=== PATIENT | male | born 1970 | race Caucasian/White ===

== ENCOUNTER 2017-11-15 20:39 | Inpatient (IN) | payer BC ==
[~2017-11-15] VITALS: Ht 182.9 cm; Wt 113.6 kg
[2017-11-15] MEDS ORDERED: normal saline 1000ML IV soln IVB ONE (21:50)
[2017-11-15] MEDS ORDERED: famotidine/PF 10 mg/ml inj IV ONE (21:50)
[2017-11-15 22:35] LABS: BASOPHILS % (AUTO) 0 % (0-1); EOSINOPHILS % (AUTO) 0.4 % (0-6); HEMATOCRIT 46.9 % (42.0-52.0); HEMOGLOBIN 15.5 g/dl (14.0-17.9); LYMPHOCYTES # (AUTO) 0.1 X10'3 (1.1-4.8); LYMPHOCYTES % (AUTO) 1.8 % (21-51); MEAN CORPUSCULAR HGB CONC 33.1 % (33.0-36.5); MEAN CORPUSCULAR VOLUME 84.5 FL (78-98); MEAN PLATELET VOLUME 7.9 FL (7.4-10.4); MONOCYTES % (AUTO) 0.2 % (2-12); NEUTROPHILS # (AUTO) 5.1 X10'3 (1.8-7.7); NEUTROPHILS % (AUTO) 97.6 % (42-75); PLATELET COUNT 169 X10'3 (140-440); RED BLOOD COUNT 5.55 X10'6 (4.70-6.10); RED CELL DISTRIBUTION WIDTH 12.9 % (11.5-14.5); WHITE BLOOD COUNT 5.3 X10'3 (4.5-11.0)
[2017-11-15 22:44] LABS: INR 1.2 INR; PROTHROMBIN TIME 12.7 SECONDS (9.0-12.0)
[2017-11-15 22:50] LABS: ALANINE AMINOTRANSFERASE 78 U/L (12-78); ALBUMIN 3.4 G/DL (3.4-5.0); ALBUMIN/GLOBULIN RATIO 0.9 (1.1-1.5); ALKALINE PHOSPHATASE 203 IU/L (46-116); ANION GAP 14 (8-16); ASPARTATE AMINO TRANSFERASE 60 U/L (10-37); BILIRUBIN,TOTAL 1.5 MG/DL (0.1-1.0); BLOOD UREA NITROGEN 16 MG/DL (7-18); BUN/CREATININE RATIO 11.4 (5.4-32.0); CALCIUM 9.3 MG/DL (8.5-10.1); CHLORIDE 96 MMOL/L (99-107); GLUCOSE 305 MG/DL (70-104); LIPASE 210 U/L (73-393); POTASSIUM 3.3 MMOL/L (3.5-5.1); SODIUM 132 MMOL/L (135-145); TOTAL CARBON DIOXIDE 22.5 MMOL/L (24-32); TOTAL PROTEIN 7.4 G/DL (6.4-8.2); eGFR 54 ML/MIN
[2017-11-15 23:00] LABS: TOTAL CELLS COUNTED 100
[2017-11-15 23:01] LABS: PLATELET ESTIMATE NORMAL; TOXIC VACUOLATION 2+
[2017-11-15] MEDS ORDERED: CefTRIAXone 2gm/NS 100ml IVPB 100 ML IV ONE (23:45)
[2017-11-15] MEDS ORDERED: levoFLOXACIN-Levaquin 750MG/D5 150 ML IV ONE (23:45)
[2017-11-16] MEDS ORDERED: normal saline 1000ML IV soln IV ONE
[2017-11-16 02:19] LABS: CLARITY,URINE Clear (Clear); COLOR,URINE Yellow (Yellow); GLUCOSE, URINE >=1000 mg/dl (Neg); KETONES,URINE Negative (Neg); LEUKOCYTE ESTERASE ,URINE Negative (Neg); NITRITES, URINE Negative (Neg); OCCULT BLOOD,URINE Negative (Neg); PROTEIN,URINE Negative (Neg)
[2017-11-16 02:25] LABS: UA COLLECTION TYPE CLN CATCH MIDSTREAM
[2017-11-16 02:28] LABS: URINE AMPHETAMINE SCREEN NEGATIVE (Neg); URINE BARBITUATE SCREEN NEGATIVE (Neg); URINE BENZODIAZEPINES SCREEN NEGATIVE (Neg); URINE CANNABINOID SCREEN NEGATIVE (Neg); URINE COCAINE SCREEN NEGATIVE (Neg); URINE METHADONE SCREEN NEGATIVE (Neg); URINE OPIATE SCREEN POSITIVE (Neg); URINE PHENCYCLIDINE SCREEN NEGATIVE (Neg)
[2017-11-16 02:35] LABS: RBC,URINE NONE SEEN /HPF (0-2); WBC,URINE 0-4 /HPF (0-4)
[2017-11-16 02:36] LABS: BACTERIA,URINE 1+ /HPF (Neg); SQUAMOUS EPITHELIAL CELL,UR NONE SEEN /LPF (FEW)
[2017-11-16] MEDS ORDERED: LEVEMIR (02:41)
[2017-11-16] MEDS ORDERED: [UNRECOGNIZED DRUG - OTHER] (02:41)
[2017-11-16] MEDS ORDERED: SIMVASTATIN 20 MG TABLET (02:41)
[2017-11-16] MEDS ORDERED: SIMVASTATIN 20 MG (02:41)
[2017-11-16] MEDS ORDERED: LISINOPRIL-HCTZ 20-25 MG TAB (02:41)
[2017-11-16] MEDS ORDERED: potassium Cl 20 mEq SR tablet PO ONE (03:46)
[2017-11-16] MEDS ORDERED: potassium Cl 20 mEq SR tablet PO PRN ×2 (04:05)
[2017-11-16] MEDS ORDERED: potassium Cl 40MEQ/NS 500ml 500 ML IV PRN ×2 (04:05)
[2017-11-16] MEDS ORDERED: magnesium hydroxide 30ml (MOM) UD suspension PO PRN (04:05)
[2017-11-16] MEDS ORDERED: mag hydrox/Alum hydrox/simeth 30ml oral suspension PO PRN (04:05)
[2017-11-16] MEDS ORDERED: glucagon, human recombinant 1mg kit SUBCUT PRN (04:05)
[2017-11-16] MEDS ORDERED: ondansetron/PF 4mg/2ml inj IV PRN (04:05)
[2017-11-16] MEDS ORDERED: acetaminophen 325mg tablet PO PRN (04:05)
[2017-11-16] MEDS ORDERED: dextrose ORAL solution 15 GM/59 ML bottle PO PRN ×2 (04:05)
[2017-11-16] MEDS ORDERED: MESSAGE TO PHARMACY PO ONE (04:05)
[2017-11-16] MEDS ORDERED: dextrose 50%-water 50ml dispensing syringe IV PRN ×2 (04:05)
[2017-11-16] MEDS: metroNIDAZOLE-Flagyl 500mg/NS 100 ML IV SCH ×3 (05:43→23:24)
[2017-11-16] MEDS: normal saline 1000ml 1,000 ML IV SCH ×2 (05:43→11:16)
[2017-11-16] MEDS: acetaminophen 325mg tablet PO PRN ×2 (10:40→16:53)
[2017-11-16 14:01] VITALS: BP 113/74
[2017-11-16 20:00] VITALS: BP 116/70
[2017-11-16] MEDS: insulin Lispro (HumaLOG) vial - multi-dose SQ SCH (20:01)
[2017-11-16] MEDS: levoFLOXACIN-Levaquin 500mg/D5 100 ML IV SCH (22:08)
[2017-11-16] MEDS: Insulin Detemir pen SQ SCH (22:15)
[2017-11-17] VITALS: BP 120/68
[2017-11-17] MEDS: normal saline 1000ml 1,000 ML IV SCH ×3 (02:59→14:47)
[2017-11-17] MEDS: acetaminophen 325mg tablet PO PRN (03:05)
[2017-11-17 06:01] LABS: BASOPHILS % (AUTO) 0 % (0-1); EOSINOPHILS # (AUTO) 0.1 X10'3 (0-0.9); EOSINOPHILS % (AUTO) 1.2 % (0-6); HEMATOCRIT 39.7 % (42.0-52.0); HEMOGLOBIN 13.5 g/dl (14.0-17.9); LYMPHOCYTES # (AUTO) 0.6 X10'3 (1.1-4.8); LYMPHOCYTES % (AUTO) 6.7 % (21-51); MEAN CORPUSCULAR HGB CONC 33.9 % (33.0-36.5); MEAN CORPUSCULAR VOLUME 85.4 FL (78-98); MEAN PLATELET VOLUME 8.6 FL (7.4-10.4); MONOCYTES # (AUTO) 0.4 X10'3 (0-0.9); NEUTROPHILS # (AUTO) 8.4 X10'3 (1.8-7.7); NEUTROPHILS % (AUTO) 88.1 % (42-75); PLATELET COUNT 144 X10'3 (140-440); RED BLOOD COUNT 4.65 X10'6 (4.70-6.10); RED CELL DISTRIBUTION WIDTH 12.6 % (11.5-14.5); WHITE BLOOD COUNT 9.6 X10'3 (4.5-11.0)
[2017-11-17 07:05] LABS: ALBUMIN 2.9 G/DL (3.4-5.0); ANION GAP 11 (8-16); BLOOD UREA NITROGEN 11 MG/DL (7-18); BUN/CREATININE RATIO 10.9 (5.4-32.0); CALCIUM 8.3 MG/DL (8.5-10.1); CHLORIDE 106 MMOL/L (99-107); CREATININE 1.01 MG/DL (0.60-1.10); GLUCOSE 209 MG/DL (70-104); MAGNESIUM 1.8 MG/DL (1.5-2.4); POTASSIUM 3.7 MMOL/L (3.5-5.1); SODIUM 139 MMOL/L (135-145); TOTAL CARBON DIOXIDE 21.8 MMOL/L (24-32); eGFR 79 ML/MIN
[2017-11-17 07:23] VITALS: BP 136/90
[2017-11-17] MEDS: insulin Lispro (HumaLOG) vial - multi-dose SQ SCH ×2 (09:06→14:57)
[2017-11-17] MEDS: LACTOBACILLUS RHAMNOSUS GG 15 billion unit sprinkle caps PO SCH (09:07)
[2017-11-17] MEDS: metroNIDAZOLE-Flagyl 500mg/NS 100 ML IV SCH ×3 (09:07→23:31)
[2017-11-17 11:52] VITALS: BP 136/85
[2017-11-17] MEDS ORDERED: ketorolac trometh. 30mg/ml inj. IM PRN (15:10)
[2017-11-17 18:00] VITALS: BP 126/81
[2017-11-17] MEDS ORDERED: PEG 3350/Na sulf,bicarb,Cl/KCl oral sol 4 liter bottle PO ONE (18:00)
[2017-11-17] MEDS: ketorolac trometh. 30mg/ml inj. IV PRN (19:48)
[2017-11-17] MEDS: levoFLOXACIN-Levaquin 500mg/D5 100 ML IV SCH (21:16)
[2017-11-17] MEDS: Insulin Detemir pen SQ SCH (21:25)
[2017-11-18] VITALS (8 sets, daily range): BP systolic 110–135; BP diastolic 63–96
[2017-11-18] MEDS: normal saline 1000ml 1,000 ML IV SCH ×2 (03:57→15:43)
[2017-11-18 05:22] LABS: BASOPHILS % (AUTO) 0.2 % (0-1); EOSINOPHILS # (AUTO) 0.1 X10'3 (0-0.9); EOSINOPHILS % (AUTO) 1.6 % (0-6); HEMATOCRIT 37.6 % (42.0-52.0); HEMOGLOBIN 12.9 g/dl (14.0-17.9); LYMPHOCYTES # (AUTO) 1.2 X10'3 (1.1-4.8); LYMPHOCYTES % (AUTO) 14.4 % (21-51); MEAN CORPUSCULAR HEMOGLOBIN 28.9 PG (27.0-31.0); MEAN CORPUSCULAR HGB CONC 34.3 % (33.0-36.5); MEAN CORPUSCULAR VOLUME 84.3 FL (78-98); MEAN PLATELET VOLUME 8.3 FL (7.4-10.4); MONOCYTES # (AUTO) 0.8 X10'3 (0-0.9); MONOCYTES % (AUTO) 10.3 % (2-12); NEUTROPHILS % (AUTO) 73.5 % (42-75); PLATELET COUNT 143 X10'3 (140-440); RED BLOOD COUNT 4.46 X10'6 (4.70-6.10); RED CELL DISTRIBUTION WIDTH 12.7 % (11.5-14.5); WHITE BLOOD COUNT 8.1 X10'3 (4.5-11.0)
[2017-11-18 06:12] LABS: ALBUMIN 2.6 G/DL (3.4-5.0); ANION GAP 9 (8-16); BLOOD UREA NITROGEN 11 MG/DL (7-18); BUN/CREATININE RATIO 11.6 (5.4-32.0); CALCIUM 8.2 MG/DL (8.5-10.1); CHLORIDE 104 MMOL/L (99-107); CREATININE 0.95 MG/DL (0.60-1.10); GLUCOSE 199 MG/DL (70-104); MAGNESIUM 1.9 MG/DL (1.5-2.4); POTASSIUM 3.4 MMOL/L (3.5-5.1); SODIUM 139 MMOL/L (135-145); TOTAL CARBON DIOXIDE 25.6 MMOL/L (24-32); eGFR 85 ML/MIN
[2017-11-18] MEDS: LACTOBACILLUS RHAMNOSUS GG 15 billion unit sprinkle caps PO SCH (08:27)
[2017-11-18] MEDS: metroNIDAZOLE-Flagyl 500mg/NS 100 ML IV SCH ×2 (08:28→15:42)
[2017-11-18] MEDS: ketorolac trometh. 30mg/ml inj. IV PRN (08:28)
[2017-11-18] MEDS ORDERED: normal saline 1000ml 1,000 ML IV SCH (11:10)
[2017-11-18] MEDS ORDERED: fentaNYL/PF 50MCG/1 ML 2ML syringe IV PRN (11:10)
[2017-11-18] MEDS ORDERED: MIDAZolam 1mg/ml 10ml vial IV PRN (11:10)
[2017-11-18] MEDS ORDERED: simethicone 40mg/0.6ml oral drops 30ml MC ONE (11:10)
[2017-11-18] MEDS ORDERED: MIDAZolam 1mg/ml 10ml vial ONE (11:57)
[2017-11-18] MEDS ORDERED: fentaNYL/PF 50MCG/1 ML 2ML syringe ONE (11:57)
[2017-11-18] MEDS ORDERED: CIPR-230 PO (15:31)
[2017-11-18] MEDS ORDERED: POTA20TA10 PO (15:32)
== END 2017-11-18 17:00 | disposition home or self-care (01) | DRG 871 ==
LOC: ER 20:40 → ED HOLD 11-16 04:05 → EDBEDREQ 11-16 13:13 → SUR 3N 11-16 13:37
PROVIDERS: ADMIT Internal Medicine; ATTEND Internal Medicine
PROC: 0DBN8ZX Excision of Sigmoid Colon, Via Natural or Artificial Opening Endoscopic, Diagnostic (ICD-10-PCS; principal; 2017-11-18)
DX: A41.9 Sepsis, unspecified organism (principal); J18.9 Pneumonia, unspecified organism; E87.2 Acidosis; K74.60 Unspecified cirrhosis of liver; E11.65 Type 2 diabetes mellitus with hyperglycemia; E66.01 Morbid (severe) obesity due to excess calories; Q43.8 Other specified congenital malformations of intestine; E78.00 Pure hypercholesterolemia, unspecified; E78.5 Hyperlipidemia, unspecified; E87.6 Hypokalemia; I10 Essential (primary) hypertension; K52.9 Noninfective gastroenteritis and colitis, unspecified; K57.30 Diverticulosis of large intestine without perforation or abscess without bleeding; K64.8 Other hemorrhoids; K76.0 Fatty (change of) liver, not elsewhere classified; K80.20 Calculus of gallbladder without cholecystitis without obstruction; R91.1 Solitary pulmonary nodule; D12.5 Benign neoplasm of sigmoid colon; Z72.0 Tobacco use; Z68.34 Body mass index [BMI] 34.0-34.9, adult
CPT/HCPCS: 36415; 45380; 71046; 74176; 76700; 80048; 80053; 80305; 81001; 82948; 83036; 83605; 83690; 83735; 84145; 84484; 85025; 85610; 85651; 86140; 87040; 87070; 87077; 87186; 87502; 87503; 93005; 96361; 96365; 96366; 96368; 96375; 99285; A4620; G0500; J0696; J1885; J1956; J2250; J2270; J3010; J3490; J7030

== ENCOUNTER 2017-11-24 07:03 | Inpatient (IN) | payer BC ==
[~2017-11-24] VITALS: Ht 182.9 cm; Wt 107.6 kg
[~2017-11-24 07:03] MED LIST: CIPR-230 PO; LEVEMIR; LISINOPRIL-HCTZ 20-25 MG TAB; POTA20TA10 PO; SIMVASTATIN 20 MG TABLET; [UNRECOGNIZED DRUG - OTHER]
[2017-11-24] MEDS ORDERED: folic acid 1mg tablet PO ONE (07:45)
[2017-11-24] MEDS ORDERED: thiamine 100mg tablet PO ONE (07:45)
[2017-11-24] MEDS ORDERED: chlordiazePOXIDE 25mg capsule PO ONE (07:45)
[2017-11-24] MEDS ORDERED: normal saline 1000ML IV soln IVB ONE (07:45)
[2017-11-24 07:57] LABS: HEMATOCRIT 48.6 % (42.0-52.0); HEMOGLOBIN 16.4 g/dl (14.0-17.9); MEAN CORPUSCULAR HEMOGLOBIN 28.4 PG (27.0-31.0); MEAN CORPUSCULAR HGB CONC 33.8 % (33.0-36.5); MEAN CORPUSCULAR VOLUME 83.9 FL (78-98); MEAN PLATELET VOLUME 8.4 FL (7.4-10.4); PLATELET COUNT 345 X10'3 (140-440); RED BLOOD COUNT 5.79 X10'6 (4.70-6.10); RED CELL DISTRIBUTION WIDTH 12.6 % (11.5-14.5)
[2017-11-24 08:03] LABS: WHITE BLOOD COUNT 26.8 X10'3 (4.5-11.0)
[2017-11-24] MEDS ORDERED: magnesium 2GM in 50ml NS 50 ML IV STA (08:06)
[2017-11-24 08:12] LABS: ALANINE AMINOTRANSFERASE 43 U/L (12-78); ALBUMIN 3.7 G/DL (3.4-5.0); ALBUMIN/GLOBULIN RATIO 0.8 (1.1-1.5); ALKALINE PHOSPHATASE 118 IU/L (46-116); ANION GAP 15 (8-16); ASPARTATE AMINO TRANSFERASE 21 U/L (10-37); BILIRUBIN,TOTAL 1.6 MG/DL (0.1-1.0); BLOOD UREA NITROGEN 22 MG/DL (7-18); BUN/CREATININE RATIO 12.2 (5.4-32.0); CHLORIDE 94 MMOL/L (99-107); ETHANOL < 0.010 GM/DL (0.0-0.010); GLUCOSE 267 MG/DL (70-104); MAGNESIUM 1.4 MG/DL (1.5-2.4); POTASSIUM 4.1 MMOL/L (3.5-5.1); SODIUM 128 MMOL/L (135-145); TOTAL CARBON DIOXIDE 19.5 MMOL/L (24-32); TOTAL PROTEIN 8.1 G/DL (6.4-8.2); eGFR 41 ML/MIN
[2017-11-24 08:13] LABS: CLARITY,URINE CLEAR (Clear); COLOR,URINE YELLOW (Yellow); GLUCOSE, URINE 100 mg/dl (Neg); KETONES,URINE NEGATIVE (Neg); LEUKOCYTE ESTERASE ,URINE NEGATIVE (Neg); NITRITES, URINE NEGATIVE (Neg); OCCULT BLOOD,URINE NEGATIVE (Neg); PROTEIN,URINE NEGATIVE (Neg); UROBILINOGEN,URINE 0.2 E.U/dL (0.2-1.0)
[2017-11-24 08:24] LABS: URINE AMPHETAMINE SCREEN NEGATIVE (Neg); URINE BARBITUATE SCREEN NEGATIVE (Neg); URINE BENZODIAZEPINES SCREEN NEGATIVE (Neg); URINE CANNABINOID SCREEN NEGATIVE (Neg); URINE COCAINE SCREEN NEGATIVE (Neg); URINE METHADONE SCREEN NEGATIVE (Neg); URINE OPIATE SCREEN NEGATIVE (Neg); URINE PHENCYCLIDINE SCREEN NEGATIVE (Neg)
[2017-11-24 08:24] LABS: INR 1.1 INR; PARTIAL THROMBOPLASTIN TIME 28 SECONDS (22-32); PROTHROMBIN TIME 10.9 SECONDS (9.0-12.0)
[2017-11-24 08:33] LABS: UA COLLECTION TYPE NON-SPECIFIED
[2017-11-24] MEDS ORDERED: piperacillin/tazo 3.375gm/50ml 50 ML IV ONE (08:35)
[2017-11-24] MEDS ORDERED: normal saline 1000ML IV soln IV ONE (08:35)
[2017-11-24] MEDS ORDERED: LINA5TAB4 PO (08:48)
[2017-11-24 08:50] LABS: MICROCYTOSIS 1+; PLATELET ESTIMATE NORMAL; TOTAL CELLS COUNTED 100; TOXIC GRANULATION 1+
[2017-11-24] MEDS ORDERED: CLIN-79 PO (08:51)
[2017-11-24] MEDS ORDERED: vancomycin/NS 1 GM ADD-VANTAGE 250 ML IV ONE (09:00)
[2017-11-24] MEDS ORDERED: potassium Cl 40MEQ/NS 500ml 500 ML IV PRN ×2 (10:00)
[2017-11-24] MEDS ORDERED: ondansetron/PF 4mg/2ml inj IV PRN (10:00)
[2017-11-24] MEDS ORDERED: mag hydrox/Alum hydrox/simeth 30ml oral suspension PO PRN (10:00)
[2017-11-24] MEDS ORDERED: magnesium Cl slow-release 64mg tablet PO PRN (10:00)
[2017-11-24] MEDS ORDERED: magnesium hydroxide 30ml (MOM) UD suspension PO PRN (10:00)
[2017-11-24] MEDS ORDERED: HYDROcodone/acetaminophen 5mg/325mg tablet PO PRN (10:00)
[2017-11-24] MEDS ORDERED: HYDROcodone/acetaminophen 10/325mg tab PO PRN (10:00)
[2017-11-24] MEDS ORDERED: magnesium 4gm in 100ml NS 100 ML IV PRN (10:00)
[2017-11-24] MEDS ORDERED: potassium Cl 20 mEq SR tablet PO PRN ×2 (10:00)
[2017-11-24] MEDS ORDERED: magnesium 2GM in 50ml NS 50 ML IV PRN (10:00)
[2017-11-24] MEDS ORDERED: glucagon, human recombinant 1mg kit SUBCUT PRN (10:05)
[2017-11-24] MEDS ORDERED: MESSAGE TO PHARMACY PO ONE (10:05)
[2017-11-24] MEDS ORDERED: dextrose 50%-water 50ml dispensing syringe IV PRN ×2 (10:05)
[2017-11-24] MEDS ORDERED: dextrose ORAL solution 15 GM/59 ML bottle PO PRN ×2 (10:05)
[2017-11-24] MEDS ORDERED: LORazepam 1 MG tablet PO PRN (10:05)
[2017-11-24] MEDS: levoFLOXACIN-Levaquin 500mg/D5 100 ML IV SCH (10:43)
[2017-11-24 11:47] VITALS: BP 106/69
[2017-11-24] MEDS: folic acid inj. 2 MG, thiamine inj. 100 MG, MVI, adult No.4 with vit. K 10 ML in dextro... IV SCH ×4 (12:59)
[2017-11-24] MEDS: potassium Cl 20mEq in NS 1,000 ML IV SCH ×2 (12:59→17:36)
[2017-11-24] MEDS: insulin Lispro (HumaLOG) vial - multi-dose SQ SCH (13:40)
[2017-11-24] MEDS ORDERED: pneumococcal 23-VAL P-sac vacc 25 mcg/0.5ml vial IMVAC ONE (16:50)
[2017-11-24] MEDS: metroNIDAZOLE-Flagyl 500mg/NS 100 ML IV SCH (17:23)
[2017-11-24 19:00] VITALS: BP 118/88
[2017-11-24] MEDS: docusate sod 100mg capsule PO SCH (20:00)
[2017-11-24 20:50] VITALS: BP 182/105
[2017-11-24] MEDS: acetaminophen 325mg tablet PO PRN (20:51)
[2017-11-24 21:10] VITALS: BP 91/66
[2017-11-24] MEDS: Insulin Detemir pen SQ SCH (21:28)
[2017-11-24 21:50] VITALS: BP 93/58
[2017-11-25] VITALS (9 sets, daily range): BP systolic 91–155; BP diastolic 55–111
[2017-11-25] MEDS: metroNIDAZOLE-Flagyl 500mg/NS 100 ML IV SCH ×2 (00:03→08:07)
[2017-11-25 05:39] LABS: BASOPHILS % (AUTO) 0 % (0-1); EOSINOPHILS % (AUTO) 0 % (0-6); HEMATOCRIT 39.1 % (42.0-52.0); HEMOGLOBIN 13.2 g/dl (14.0-17.9); LYMPHOCYTES # (AUTO) 0.4 X10'3 (1.1-4.8); LYMPHOCYTES % (AUTO) 1.5 % (21-51); MEAN CORPUSCULAR HEMOGLOBIN 28.5 PG (27.0-31.0); MEAN CORPUSCULAR HGB CONC 33.8 % (33.0-36.5); MEAN CORPUSCULAR VOLUME 84.4 FL (78-98); MEAN PLATELET VOLUME 8.9 FL (7.4-10.4); MONOCYTES % (AUTO) 3.7 % (2-12); NEUTROPHILS # (AUTO) 24.5 X10'3 (1.8-7.7); NEUTROPHILS % (AUTO) 94.8 % (42-75); PLATELET COUNT 255 X10'3 (140-440); RED BLOOD COUNT 4.63 X10'6 (4.70-6.10); RED CELL DISTRIBUTION WIDTH 12.7 % (11.5-14.5)
[2017-11-25 05:55] LABS: ALANINE AMINOTRANSFERASE 38 U/L (12-78); ALBUMIN 2.7 G/DL (3.4-5.0); ALBUMIN/GLOBULIN RATIO 0.7 (1.1-1.5); ALKALINE PHOSPHATASE 117 IU/L (46-116); ANION GAP 10 (8-16); ASPARTATE AMINO TRANSFERASE 23 U/L (10-37); BILIRUBIN,TOTAL 1.2 MG/DL (0.1-1.0); BLOOD UREA NITROGEN 11 MG/DL (7-18); BUN/CREATININE RATIO 9.6 (5.4-32.0); CALCIUM 8.1 MG/DL (8.5-10.1); CHLORIDE 102 MMOL/L (99-107); CREATININE 1.14 MG/DL (0.60-1.10); GLUCOSE 286 MG/DL (70-104); MAGNESIUM 1.8 MG/DL (1.5-2.4); POTASSIUM 4.1 MMOL/L (3.5-5.1); SODIUM 134 MMOL/L (135-145); TOTAL CARBON DIOXIDE 22.1 MMOL/L (24-32); TOTAL PROTEIN 6.4 G/DL (6.4-8.2); eGFR 69 ML/MIN
[2017-11-25 06:10] LABS: WHITE BLOOD COUNT 25.9 X10'3 (4.5-11.0)
[2017-11-25 06:54] LABS: MICROCYTOSIS 1+; PLATELET ESTIMATE NORMAL; TOTAL CELLS COUNTED 100; TOXIC GRANULATION 1+
[2017-11-25] MEDS: enoxaparin 40mg/0.4ml syringe SUBCUT SCH (08:00)
[2017-11-25] MEDS: folic acid inj. 2 MG, thiamine inj. 100 MG, MVI, adult No.4 with vit. K 10 ML in dextro... IV SCH ×4 (08:00)
[2017-11-25] MEDS: K and/or MAG REPLACEMENT MC SCH (08:00)
[2017-11-25] MEDS: docusate sod 100mg capsule PO SCH ×2 (08:00→20:00)
[2017-11-25] MEDS: insulin Lispro (HumaLOG) vial - multi-dose SQ SCH ×2 (09:13→13:26)
[2017-11-25] MEDS: levoFLOXACIN-Levaquin 500mg/D5 100 ML IV SCH (09:14)
[2017-11-25] MEDS: potassium Cl 20mEq in NS 1,000 ML IV SCH ×3 (10:13→17:27)
[2017-11-25] MEDS: thiamine 100mg tablet PO SCH (10:54)
[2017-11-25] MEDS: folic acid 1mg tablet PO SCH (10:54)
[2017-11-25] MEDS ORDERED: LORazepam 2 mg/ml vial IV ONE ×2 (15:05→15:50)
[2017-11-25] MEDS: acetaminophen 325mg tablet PO PRN (15:57)
[2017-11-25] MEDS ORDERED: normal saline 500ml IV soln 500 ML IV ONE ×2 (16:25→17:05)
[2017-11-25] MEDS ORDERED: ketorolac trometh. 30mg/ml inj. IV ONE (17:05)
[2017-11-25] MEDS: piperacillin/tazo 4.5gm/100ml 100 ML IV SCH (18:02)
[2017-11-25] MEDS: diatr meglu/diatrizoate 30ml oral sol.-(3 dose) bottle PO SCH (21:05)
[2017-11-25] MEDS: Insulin Detemir pen SQ SCH (21:12)
[2017-11-26] VITALS: BP 94/57
[2017-11-26] MEDS: potassium Cl 20mEq in NS 1,000 ML IV SCH ×3 (00:20→22:58)
[2017-11-26] MEDS: piperacillin/tazo 4.5gm/100ml 100 ML IV SCH ×4 (00:24→22:58)
[2017-11-26 04:00] VITALS: BP 98/64
[2017-11-26 04:26] LABS: BASOPHILS % (AUTO) 0.1 % (0-1); EOSINOPHILS % (AUTO) 0 % (0-6); HEMATOCRIT 36.5 % (42.0-52.0); HEMOGLOBIN 12.2 g/dl (14.0-17.9); LYMPHOCYTES # (AUTO) 1.1 X10'3 (1.1-4.8); LYMPHOCYTES % (AUTO) 7.3 % (21-51); MEAN CORPUSCULAR HEMOGLOBIN 28.4 PG (27.0-31.0); MEAN CORPUSCULAR HGB CONC 33.3 % (33.0-36.5); MEAN CORPUSCULAR VOLUME 85.2 FL (78-98); MEAN PLATELET VOLUME 8.9 FL (7.4-10.4); MONOCYTES % (AUTO) 7.2 % (2-12); NEUTROPHILS # (AUTO) 12.3 X10'3 (1.8-7.7); NEUTROPHILS % (AUTO) 85.4 % (42-75); PLATELET COUNT 203 X10'3 (140-440); RED BLOOD COUNT 4.29 X10'6 (4.70-6.10); RED CELL DISTRIBUTION WIDTH 12.9 % (11.5-14.5); WHITE BLOOD COUNT 14.4 X10'3 (4.5-11.0)
[2017-11-26 04:51] LABS: ALANINE AMINOTRANSFERASE 47 U/L (12-78); ALBUMIN 2.4 G/DL (3.4-5.0); ALBUMIN/GLOBULIN RATIO 0.7 (1.1-1.5); ALKALINE PHOSPHATASE 134 IU/L (46-116); ANION GAP 7 (8-16); ASPARTATE AMINO TRANSFERASE 31 U/L (10-37); BILIRUBIN,TOTAL 1.2 MG/DL (0.1-1.0); BLOOD UREA NITROGEN 10 MG/DL (7-18); BUN/CREATININE RATIO 8.8 (5.4-32.0); CALCIUM 7.9 MG/DL (8.5-10.1); CHLORIDE 104 MMOL/L (99-107); CREATININE 1.14 MG/DL (0.60-1.10); GLUCOSE 233 MG/DL (70-104); MAGNESIUM 2.1 MG/DL (1.5-2.4); POTASSIUM 4.5 MMOL/L (3.5-5.1); SODIUM 136 MMOL/L (135-145); TOTAL CARBON DIOXIDE 24.6 MMOL/L (24-32); TOTAL PROTEIN 5.9 G/DL (6.4-8.2); eGFR 69 ML/MIN
[2017-11-26] MEDS: diatr meglu/diatrizoate 30ml oral sol.-(3 dose) bottle PO SCH ×2 (07:10→10:13)
[2017-11-26] MEDS: thiamine 100mg tablet PO SCH (07:14)
[2017-11-26] MEDS: enoxaparin 40mg/0.4ml syringe SUBCUT SCH (07:14)
[2017-11-26] MEDS: folic acid 1mg tablet PO SCH (07:14)
[2017-11-26] MEDS: docusate sod 100mg capsule PO SCH ×2 (07:15→19:24)
[2017-11-26] MEDS: K and/or MAG REPLACEMENT MC SCH (07:17)
[2017-11-26 07:25] VITALS: BP 101/68
[2017-11-26] MEDS: insulin Lispro (HumaLOG) vial - multi-dose SQ SCH ×3 (09:06→20:14)
[2017-11-26] MEDS: LORazepam 2 mg/ml vial IV PRN ×3 (09:08→19:22)
[2017-11-26] MEDS ORDERED: iohexol 300mg/ml 100ml inj. ONE (09:51)
[2017-11-26] MEDS: acetaminophen 325mg tablet PO PRN (10:10)
[2017-11-26 11:15] VITALS: BP 124/73
[2017-11-26] MEDS ORDERED: fat emulsion IV 181.82 ML, MVI, adult No.4 with vit. K 4.55 ML, Trace element-5 inj. 0.... IV SCH ×4 (11:48)
[2017-11-26] MEDS ORDERED: Dextrose 10%-water IV solution 1,000 ML IV PRN (11:48)
[2017-11-26] MEDS ORDERED: magnesium 2GM in 50ml NS 50 ML IV PRN (11:50)
[2017-11-26] MEDS ORDERED: magnesium Cl slow-release 64mg tablet PO PRN (11:50)
[2017-11-26] MEDS ORDERED: magnesium 4gm in 100ml NS 100 ML IV PRN (11:50)
[2017-11-26] MEDS: metroNIDAZOLE-Flagyl 500mg/NS 100 ML IV SCH ×2 (12:09→17:19)
[2017-11-26 13:06] LABS: ALANINE AMINOTRANSFERASE 44 U/L (12-78); ALBUMIN 2.6 G/DL (3.4-5.0); ALBUMIN/GLOBULIN RATIO 0.7 (1.1-1.5); ALKALINE PHOSPHATASE 152 IU/L (46-116); ANION GAP 7 (8-16); ASPARTATE AMINO TRANSFERASE 26 U/L (10-37); BILIRUBIN,TOTAL 1.2 MG/DL (0.1-1.0); BLOOD UREA NITROGEN 10 MG/DL (7-18); BUN/CREATININE RATIO 9.7 (5.4-32.0); CALCIUM 8.1 MG/DL (8.5-10.1); CHLORIDE 103 MMOL/L (99-107); CREATININE 1.03 MG/DL (0.60-1.10); GLUCOSE 220 MG/DL (70-104); MAGNESIUM 1.8 MG/DL (1.5-2.4); PHOSPHORUS 1.4 MG/DL (2.3-4.5); POTASSIUM 3.6 MMOL/L (3.5-5.1); PREALBUMIN 13.5 MG/DL (19-36); SODIUM 135 MMOL/L (135-145); TOTAL CARBON DIOXIDE 25.5 MMOL/L (24-32); TOTAL PROTEIN 6.2 G/DL (6.4-8.2); TRIGLYCERIDES 203 MG/DL (20-135); eGFR 77 ML/MIN
[2017-11-26] MEDS ORDERED: potassium phosphate inj 30 MMOL in normal saline 500ml IV soln 490 ML IV ONE (13:25)
[2017-11-26 18:30] VITALS: BP 90/50
[2017-11-26] MEDS: Insulin Detemir pen SQ SCH (20:18)
[2017-11-27] VITALS: BP 114/64
[2017-11-27] MEDS: metroNIDAZOLE-Flagyl 500mg/NS 100 ML IV SCH ×4 (00:32→23:39)
[2017-11-27 05:33] LABS: BASOPHILS % (AUTO) 0.5 % (0-1); EOSINOPHILS # (AUTO) 0.2 X10'3 (0-0.9); HEMATOCRIT 38.6 % (42.0-52.0); HEMOGLOBIN 12.9 g/dl (14.0-17.9); LYMPHOCYTES # (AUTO) 0.9 X10'3 (1.1-4.8); LYMPHOCYTES % (AUTO) 10.3 % (21-51); MEAN CORPUSCULAR HEMOGLOBIN 28.5 PG (27.0-31.0); MEAN CORPUSCULAR HGB CONC 33.3 % (33.0-36.5); MEAN CORPUSCULAR VOLUME 85.6 FL (78-98); MEAN PLATELET VOLUME 9.2 FL (7.4-10.4); MONOCYTES # (AUTO) 0.6 X10'3 (0-0.9); MONOCYTES % (AUTO) 7.6 % (2-12); NEUTROPHILS # (AUTO) 6.7 X10'3 (1.8-7.7); NEUTROPHILS % (AUTO) 79.6 % (42-75); PLATELET COUNT 185 X10'3 (140-440); RED BLOOD COUNT 4.51 X10'6 (4.70-6.10); RED CELL DISTRIBUTION WIDTH 12.7 % (11.5-14.5); WHITE BLOOD COUNT 8.4 X10'3 (4.5-11.0)
[2017-11-27 06:04] LABS: ALBUMIN 2.5 G/DL (3.4-5.0); ANION GAP 9 (8-16); BILIRUBIN,TOTAL 1.2 MG/DL (0.1-1.0); BLOOD UREA NITROGEN 9 MG/DL (7-18); BUN/CREATININE RATIO 8.7 (5.4-32.0); CALCIUM 8.3 MG/DL (8.5-10.1); CHLORIDE 104 MMOL/L (99-107); CREATININE 1.04 MG/DL (0.60-1.10); GLUCOSE 158 MG/DL (70-104); PHOSPHORUS 3.4 MG/DL (2.3-4.5); POTASSIUM 4.5 MMOL/L (3.5-5.1); SODIUM 138 MMOL/L (135-145); TOTAL CARBON DIOXIDE 25.4 MMOL/L (24-32); TOTAL PROTEIN 6.4 G/DL (6.4-8.2); eGFR 77 ML/MIN
[2017-11-27 06:05] LABS: ALANINE AMINOTRANSFERASE 38 U/L (12-78); ALBUMIN/GLOBULIN RATIO 0.6 (1.1-1.5); ALKALINE PHOSPHATASE 112 IU/L (46-116); ASPARTATE AMINO TRANSFERASE 18 U/L (10-37); PREALBUMIN 12.8 MG/DL (19-36); TRIGLYCERIDES 266 MG/DL (20-135)
[2017-11-27] MEDS: docusate sod 100mg capsule PO SCH ×2 (07:46→19:42)
[2017-11-27] MEDS: piperacillin/tazo 4.5gm/100ml 100 ML IV SCH ×2 (07:59→16:38)
[2017-11-27] MEDS ORDERED: thiamine inj. 100 MG in normal saline 100ml IV soln 99 ML IV SCH (08:00)
[2017-11-27] MEDS: enoxaparin 40mg/0.4ml syringe SUBCUT SCH (08:00)
[2017-11-27] MEDS ORDERED: folic acid 1mg/0.2ml inj IV SCH (08:00)
[2017-11-27] MEDS ORDERED: thiamine 100mg/ml 2ml inj. IV SCH (08:00)
[2017-11-27] MEDS: K and/or MAG REPLACEMENT MC SCH (08:00)
[2017-11-27] MEDS: insulin Lispro (HumaLOG) vial - multi-dose SQ SCH ×2 (08:12→15:31)
[2017-11-27 08:22] VITALS: BP 125/80
[2017-11-27] MEDS: potassium Cl 20mEq in NS 1,000 ML IV SCH ×3 (09:09→23:42)
[2017-11-27 11:45] VITALS: BP 118/80
[2017-11-27] MEDS ORDERED: potassium Cl 40MEQ/NS 500ml 500 ML IV PRN ×2 (14:05)
[2017-11-27] MEDS ORDERED: potassium Cl 20 mEq SR tablet PO PRN ×2 (14:05)
[2017-11-27 18:30] VITALS: BP 123/85
[2017-11-27] MEDS: [UNRECOGNIZED DRUG - REMARK] IV SCH ×6 (19:08)
[2017-11-27] MEDS: Insulin Detemir pen SQ SCH (20:49)
[2017-11-28] VITALS: BP 122/70
[2017-11-28] MEDS: piperacillin/tazo 4.5gm/100ml 100 ML IV SCH ×4 (00:44→23:47)
[2017-11-28] MEDS: insulin regular, human vial - multi-dose SQ SCH ×4 (01:59→20:39)
[2017-11-28 05:59] LABS: BASOPHILS # (AUTO) 0.1 X10'3 (0-0.2); BASOPHILS % (AUTO) 0.8 % (0-1); EOSINOPHILS # (AUTO) 0.2 X10'3 (0-0.9); EOSINOPHILS % (AUTO) 2.1 % (0-6); HEMATOCRIT 37.1 % (42.0-52.0); HEMOGLOBIN 12.6 g/dl (14.0-17.9); LYMPHOCYTES % (AUTO) 12.7 % (21-51); MEAN CORPUSCULAR HEMOGLOBIN 28.3 PG (27.0-31.0); MEAN CORPUSCULAR HGB CONC 33.8 % (33.0-36.5); MEAN CORPUSCULAR VOLUME 83.6 FL (78-98); MEAN PLATELET VOLUME 9.1 FL (7.4-10.4); MONOCYTES % (AUTO) 12.6 % (2-12); NEUTROPHILS # (AUTO) 5.7 X10'3 (1.8-7.7); NEUTROPHILS % (AUTO) 71.8 % (42-75); PLATELET COUNT 226 X10'3 (140-440); RED BLOOD COUNT 4.44 X10'6 (4.70-6.10); WHITE BLOOD COUNT 7.9 X10'3 (4.5-11.0)
[2017-11-28 06:18] LABS: ALANINE AMINOTRANSFERASE 29 U/L (12-78); ALBUMIN 2.4 G/DL (3.4-5.0); ALBUMIN/GLOBULIN RATIO 0.6 (1.1-1.5); ALKALINE PHOSPHATASE 116 IU/L (46-116); ANION GAP 5 (8-16); ASPARTATE AMINO TRANSFERASE 16 U/L (10-37); BILIRUBIN,TOTAL 0.8 MG/DL (0.1-1.0); BLOOD UREA NITROGEN 8 MG/DL (7-18); BUN/CREATININE RATIO 9.2 (5.4-32.0); CALCIUM 8.1 MG/DL (8.5-10.1); CHLORIDE 104 MMOL/L (99-107); CREATININE 0.87 MG/DL (0.60-1.10); GLUCOSE 217 MG/DL (70-104); PHOSPHORUS 3.7 MG/DL (2.3-4.5); POTASSIUM 3.7 MMOL/L (3.5-5.1); SODIUM 136 MMOL/L (135-145); TOTAL CARBON DIOXIDE 27.1 MMOL/L (24-32); TOTAL PROTEIN 6.1 G/DL (6.4-8.2); eGFR > 90 ML/MIN
[2017-11-28 07:00] VITALS: BP 109/70
[2017-11-28] MEDS: LACTOBACILLUS RHAMNOSUS GG 15 billion unit sprinkle caps PO SCH (07:30)
[2017-11-28] MEDS: metroNIDAZOLE-Flagyl 500mg/NS 100 ML IV SCH (07:50)
[2017-11-28] MEDS: enoxaparin 40mg/0.4ml syringe SUBCUT SCH (07:51)
[2017-11-28] MEDS: docusate sod 100mg capsule PO SCH ×2 (08:00→18:57)
[2017-11-28] MEDS ORDERED: K and/or MAG REPLACEMENT MC SCH (08:00)
[2017-11-28] MEDS: K and/or MAG REPLACEMENT MC SCH (08:00)
[2017-11-28 11:00] VITALS: BP 118/79
[2017-11-28] MEDS: potassium Cl 20mEq in NS 1,000 ML IV SCH (15:09)
[2017-11-28 18:30] VITALS: BP 120/75
[2017-11-28] MEDS: [UNRECOGNIZED DRUG - REMARK] IV SCH ×6 (18:56)
[2017-11-28] MEDS: Insulin Detemir pen SQ SCH (20:40)
[2017-11-28] MEDS ORDERED: potassium Cl 20mEq in NS 1,000 ML IV ONE (23:31)
[2017-11-29] VITALS: BP 134/75
[2017-11-29] MEDS: insulin regular, human vial - multi-dose SQ SCH ×2 (02:21→09:31)
[2017-11-29 05:35] LABS: BASOPHILS % (AUTO) 0.5 % (0-1); EOSINOPHILS # (AUTO) 0.3 X10'3 (0-0.9); EOSINOPHILS % (AUTO) 3.6 % (0-6); HEMATOCRIT 39.5 % (42.0-52.0); HEMOGLOBIN 13.1 g/dl (14.0-17.9); LYMPHOCYTES # (AUTO) 1.2 X10'3 (1.1-4.8); LYMPHOCYTES % (AUTO) 16.1 % (21-51); MEAN CORPUSCULAR HEMOGLOBIN 28.1 PG (27.0-31.0); MEAN CORPUSCULAR HGB CONC 33.1 % (33.0-36.5); MEAN CORPUSCULAR VOLUME 84.8 FL (78-98); MEAN PLATELET VOLUME 9.2 FL (7.4-10.4); MONOCYTES # (AUTO) 0.8 X10'3 (0-0.9); MONOCYTES % (AUTO) 10.7 % (2-12); NEUTROPHILS % (AUTO) 69.1 % (42-75); PLATELET COUNT 269 X10'3 (140-440); RED BLOOD COUNT 4.65 X10'6 (4.70-6.10); RED CELL DISTRIBUTION WIDTH 12.7 % (11.5-14.5); WHITE BLOOD COUNT 7.2 X10'3 (4.5-11.0)
[2017-11-29 05:57] LABS: ALANINE AMINOTRANSFERASE 26 U/L (12-78); ALBUMIN 2.6 G/DL (3.4-5.0); ALBUMIN/GLOBULIN RATIO 0.7 (1.1-1.5); ALKALINE PHOSPHATASE 107 IU/L (46-116); ANION GAP 6 (8-16); ASPARTATE AMINO TRANSFERASE 13 U/L (10-37); BILIRUBIN,TOTAL 0.6 MG/DL (0.1-1.0); BLOOD UREA NITROGEN 8 MG/DL (7-18); BUN/CREATININE RATIO 8.9 (5.4-32.0); CALCIUM 8.7 MG/DL (8.5-10.1); CHLORIDE 106 MMOL/L (99-107); GLUCOSE 177 MG/DL (70-104); MAGNESIUM 2.1 MG/DL (1.5-2.4); PHOSPHORUS 4.9 MG/DL (2.3-4.5); POTASSIUM 3.7 MMOL/L (3.5-5.1); SODIUM 140 MMOL/L (135-145); TOTAL CARBON DIOXIDE 27.8 MMOL/L (24-32); TOTAL PROTEIN 6.3 G/DL (6.4-8.2); eGFR 90 ML/MIN
[2017-11-29 07:19] VITALS: BP 126/78
[2017-11-29] MEDS: K and/or MAG REPLACEMENT MC SCH (08:00)
[2017-11-29] MEDS: docusate sod 100mg capsule PO SCH ×2 (08:00→20:00)
[2017-11-29] MEDS: piperacillin/tazo 4.5gm/100ml 100 ML IV SCH ×3 (08:50→23:19)
[2017-11-29] MEDS: LACTOBACILLUS RHAMNOSUS GG 15 billion unit sprinkle caps PO SCH (08:50)
[2017-11-29] MEDS: enoxaparin 40mg/0.4ml syringe SUBCUT SCH (08:51)
[2017-11-29 11:00] VITALS: BP 128/73
[2017-11-29] MEDS: potassium Cl 20mEq in NS 1,000 ML IV SCH ×2 (11:09→23:19)
[2017-11-29] MEDS: insulin Lispro (HumaLOG) vial - multi-dose SQ SCH ×2 (15:34→19:06)
[2017-11-29 20:15] VITALS: BP 122/85
[2017-11-29] MEDS: Insulin Detemir pen SQ SCH (21:20)
[2017-11-29] MEDS ORDERED: potassium Cl 20mEq in NS 1,000 ML IV ONE (23:11)
[2017-11-29 23:45] VITALS: BP 123/76
[2017-11-30 05:40] LABS: ALANINE AMINOTRANSFERASE 27 U/L (12-78); ALBUMIN 2.6 G/DL (3.4-5.0); ALBUMIN/GLOBULIN RATIO 0.7 (1.1-1.5); ALKALINE PHOSPHATASE 105 IU/L (46-116); ANION GAP 5 (8-16); ASPARTATE AMINO TRANSFERASE 23 U/L (10-37); BILIRUBIN,TOTAL 0.6 MG/DL (0.1-1.0); BLOOD UREA NITROGEN 10 MG/DL (7-18); CALCIUM 8.7 MG/DL (8.5-10.1); CHLORIDE 106 MMOL/L (99-107); GLUCOSE 155 MG/DL (70-104); MAGNESIUM 1.9 MG/DL (1.5-2.4); PHOSPHORUS 4.7 MG/DL (2.3-4.5); POTASSIUM 4.5 MMOL/L (3.5-5.1); PREALBUMIN 16.2 MG/DL (19-36); SODIUM 139 MMOL/L (135-145); TOTAL PROTEIN 6.5 G/DL (6.4-8.2); TRIGLYCERIDES 257 MG/DL (20-135); eGFR 80 ML/MIN
[2017-11-30] MEDS: LACTOBACILLUS RHAMNOSUS GG 15 billion unit sprinkle caps PO SCH (07:35)
[2017-11-30] MEDS: piperacillin/tazo 4.5gm/100ml 100 ML IV SCH (07:36)
[2017-11-30] MEDS: enoxaparin 40mg/0.4ml syringe SUBCUT SCH (07:36)
[2017-11-30] MEDS: K and/or MAG REPLACEMENT MC SCH (07:43)
[2017-11-30 07:47] VITALS: BP 107/73
[2017-11-30] MEDS: docusate sod 100mg capsule PO SCH (08:00)
[2017-11-30] MEDS: insulin Lispro (HumaLOG) vial - multi-dose SQ SCH (08:49)
[2017-11-30 11:31] VITALS: BP 127/59
[2017-11-30] MEDS ORDERED: METR500T4 PO (11:54)
[2017-11-30] MEDS ORDERED: LEVO500T2 PO (11:54)
== END 2017-11-30 14:16 | disposition home or self-care (01) | DRG 871 ==
LOC: ER 07:04 → ED HOLD 09:58 → EDBEDREQ 10:57 → SUR 3N 11:56
PROVIDERS: ADMIT Internal Medicine; ATTEND Family Medicine
PROC: BW211ZZ Computerized Tomography (CT Scan) of Abdomen and Pelvis using Low Osmolar Contrast (ICD-10-PCS; principal; 2017-11-26)
PROC: 02HV33Z Insertion of Infusion Device into Superior Vena Cava, Percutaneous Approach (ICD-10-PCS; 2017-11-27)
PROC: B548ZZA Ultrasonography of Superior Vena Cava, Guidance (ICD-10-PCS; 2017-11-27)
DX: A40.9 Streptococcal sepsis, unspecified (principal); N17.0 Acute kidney failure with tubular necrosis; E87.1 Hypo-osmolality and hyponatremia; K57.20 Diverticulitis of large intestine with perforation and abscess without bleeding; E83.39 Other disorders of phosphorus metabolism; N17.9 Acute kidney failure, unspecified; E11.9 Type 2 diabetes mellitus without complications; D64.9 Anemia, unspecified; K76.0 Fatty (change of) liver, not elsewhere classified; E78.00 Pure hypercholesterolemia, unspecified; E78.5 Hyperlipidemia, unspecified; A41.4 Sepsis due to anaerobes; A41.89 Other specified sepsis; E86.0 Dehydration; F10.20 Alcohol dependence, uncomplicated; I10 Essential (primary) hypertension; K52.9 Noninfective gastroenteritis and colitis, unspecified; Z86.010 Personal history of colon polyps; Z87.891 Personal history of nicotine dependence; Z79.899 Other long term (current) drug therapy; Z79.01 Long term (current) use of anticoagulants; Z79.82 Long term (current) use of aspirin
CPT/HCPCS: 36415; 36569; 71045; 74176; 74177; 76937; 80053; 80305; 80320; 81003; 82948; 83036; 83605; 83735; 84100; 84134; 84145; 84478; 85025; 85610; 85730; 87040; 87070; 87077; 87186; 93005; 93306; 96365; 96366; 96368; 97116; 97162; 97530; 99291; A6257; A6449; J1650; J1815; J1885; J1956; J2060; J2270; J2543; J3370; J3411; J3475; J3490; J7030; J7060; Q9963; Q9967

== ENCOUNTER 2018-02-07 09:27 | Outpatient (CLI) | payer BC ==
[2018-02-07] VITALS (16 sets, daily range): BP systolic 98–123; BP diastolic 57–76
[~2018-02-07] VITALS: Ht 182.9 cm; Wt 101.5 kg
[~2018-02-07 09:27] MED LIST changes: -CIPR-230 PO; +HYDR-565 PO; +INSU100I25 SQ; -LEVEMIR; +LINA5TAB4 PO; +LISI1TAB13 PO; -LISINOPRIL-HCTZ 20-25 MG TAB; -POTA20TA10 PO; +SIMV20TA5 PO; -SIMVASTATIN 20 MG TABLET; -[UNRECOGNIZED DRUG - OTHER]
[2018-02-07] MEDS ORDERED: normal saline 1000ml 1,000 ML IV SCH (11:01)
[2018-02-07] MEDS ORDERED: fentaNYL/PF 50MCG/1 ML 2ML syringe ONE ×2 (11:05→11:32)
[2018-02-07] MEDS ORDERED: fentaNYL/PF 50MCG/1 ML 2ML syringe IV PRN (11:05)
[2018-02-07] MEDS ORDERED: midazolam 2 mg/2 ml injection IV PRN (11:05)
[2018-02-07] MEDS ORDERED: midazolam 2 mg/2 ml injection ONE ×2 (11:05→11:32)
[2018-02-07] MEDS ORDERED: LIDOcaine 1%/PF (10mg/ml) 5ml vial ONE (11:05)
[2018-02-07] MEDS ORDERED: LIDOcaine 1%/PF (10mg/ml) 5ml vial SQ ONE (11:05)
[2018-02-07] MEDS ORDERED: HYDR-565 PO (13:25)
== END 2018-02-07 13:20 | disposition home or self-care (01) ==
LOC: 64 CT 09:27
PROVIDERS: ATTEND Surgery
DX: L02.211 Cutaneous abscess of abdominal wall (principal); K80.80 Other cholelithiasis without obstruction; E11.9 Type 2 diabetes mellitus without complications; E66.9 Obesity, unspecified; I10 Essential (primary) hypertension; E78.5 Hyperlipidemia, unspecified; F10.21 Alcohol dependence, in remission; Z68.30 Body mass index [BMI] 30.0-30.9, adult; Z79.4 Long term (current) use of insulin; Z90.49 Acquired absence of other specified parts of digestive tract; Z87.891 Personal history of nicotine dependence; Z98.52 Vasectomy status; Z79.2 Long term (current) use of antibiotics; Z79.82 Long term (current) use of aspirin; Z79.899 Other long term (current) drug therapy
CPT/HCPCS: 49406; 74176; 87070; 87077; 87186; 99152; 99153; A6257; J2001; J2250; J3010; J7030

== ENCOUNTER 2018-02-08 12:12 | Inpatient (IN) | payer BC ==
[2018-02-08] VITALS (16 sets, daily range): BP systolic 111–139; BP diastolic 71–96
[~2018-02-08] VITALS: Ht 172.7 cm; Wt 101.0 kg
[~2018-02-08 12:12] MED LIST changes: +cefazolin/dext.iso 2gm/50ml 50 ML IV ONE; +famotidine 20mg tablet PO ONE
[2018-02-08] MEDS: ringers solution, lacted 1,000 ML IV SCH ×2 (12:48→21:52)
[2018-02-08 13:19] LABS: BASOPHILS # (AUTO) 0.1 X10'3 (0-0.2); BASOPHILS % (AUTO) 0.9 % (0-1); EOSINOPHILS # (AUTO) 0.2 X10'3 (0-0.9); EOSINOPHILS % (AUTO) 1.5 % (0-6); LYMPHOCYTES # (AUTO) 1.5 X10'3 (1.1-4.8); LYMPHOCYTES % (AUTO) 13.9 % (21-51); MEAN CORPUSCULAR HEMOGLOBIN 27.6 PG (27.0-31.0); MEAN CORPUSCULAR HGB CONC 33.5 % (33.0-36.5); MEAN CORPUSCULAR VOLUME 82.5 FL (78-98); MEAN PLATELET VOLUME 7.5 FL (7.4-10.4); MONOCYTES # (AUTO) 0.8 X10'3 (0-0.9); MONOCYTES % (AUTO) 7.2 % (2-12); NEUTROPHILS # (AUTO) 8.1 X10'3 (1.8-7.7); NEUTROPHILS % (AUTO) 76.5 % (42-75); PRE OP HEMATOCRIT 38.1 % (42.0-52.0); PRE OP HEMOGLOBIN 12.7 g/dL (14.0-17.9); PRE OP PLATELET COUNT 762 X10'3 (140-440); RED BLOOD COUNT 4.61 X10'6 (4.70-6.10); RED CELL DISTRIBUTION WIDTH 13.8 % (11.5-14.5)
[2018-02-08 13:32] LABS: ALBUMIN 3.3 G/DL (3.4-5.0); ALBUMIN/GLOBULIN RATIO 0.6 (1.1-1.5); ALKALINE PHOSPHATASE 75 IU/L (46-116); BLOOD UREA NITROGEN 12 MG/DL (7-18); BUN/CREATININE RATIO 14.8 (5.4-32.0); CALCIUM 9.8 MG/DL (8.5-10.1); CHLORIDE 98 MMOL/L (99-107); CREATININE 0.81 MG/DL (0.60-1.10); PRE OP ALT 11 U/L (30-65); PRE OP ANION GAP 12 (8-16); PRE OP AST 15 U/L (10-37); PRE OP BILIRUB, TOTAL 0.6 MG/DL (0.0-1.0); PRE OP GLUCOSE 155 MG/DL (70-104); PRE OP POTASSIUM 4.2 MMOL/L (3.4-5.1); PRE OP SODIUM 136 MMOL/L (135-145); TOTAL CARBON DIOXIDE 26.2 MMOL/L (24-32); TOTAL PROTEIN 8.4 G/DL (6.4-8.2); eGFR > 90 ML/MIN
[2018-02-08] MEDS ORDERED: ceFAZolin 1000mg inj ONE (13:33)
[2018-02-08] MEDS ORDERED: midazolam 2 mg/2 ml injection ONE (14:30)
[2018-02-08] MEDS ORDERED: sevoflurane 250ml liquid IH ONE (14:30)
[2018-02-08] MEDS ORDERED: fentaNYL /PF 50mcg/ml 5ml ampule ONE (14:31)
[2018-02-08] MEDS ORDERED: ondansetron/PF 4mg/2ml inj IV PRN (15:05)
[2018-02-08] MEDS ORDERED: propofol inj 20 ML IV ONE (15:10)
[2018-02-08] MEDS ORDERED: LIDOcaine 2% (20mg/ml) 5ml vial ONE (15:10)
[2018-02-08] MEDS ORDERED: ondansetron/PF 4mg/2ml inj ONE (15:10)
[2018-02-08] MEDS ORDERED: metoprolol tartrate 1mg/ml inj IV ONE (15:10)
[2018-02-08] MEDS ORDERED: glycopyrrolate 0.2mg/ml inj ONE (15:10)
[2018-02-08] MEDS ORDERED: rocuronium 10mg/ml inj IV ONE (15:10)
[2018-02-08] MEDS ORDERED: neostigmine methylsulfate 1 MG/ML 10ml vial ONE (15:10)
[2018-02-08] MEDS ORDERED: MESSAGE TO PHARMACY PO ONE (16:40)
[2018-02-08] MEDS ORDERED: glucagon, human recombinant 1mg kit SUBCUT PRN (16:40)
[2018-02-08] MEDS ORDERED: insulin regular, human vial - multi-dose SQ SCH (16:40)
[2018-02-08] MEDS ORDERED: dextrose ORAL solution 15 GM/59 ML bottle PO PRN ×2 (16:40)
[2018-02-08] MEDS ORDERED: dextrose 50%-water 50ml dispensing syringe IV PRN ×2 (16:40)
[2018-02-08] MEDS: HYDROcodone/acetaminophen 10/325mg tab PO PRN ×2 (17:46→21:44)
[2018-02-08] MEDS: amox tr/potassium clavulanate 500mg/125mg TAB PO SCH (19:12)
[2018-02-08] MEDS: insulin glargine (Lantus) pen - multi-dose SQ SCH (21:00)
[2018-02-09] VITALS: BP 142/76
[2018-02-09] MEDS: HYDROcodone/acetaminophen 10/325mg tab PO PRN ×5 (02:51→20:59)
[2018-02-09 04:00] VITALS: BP 114/80
[2018-02-09 06:00] VITALS: BP 124/76
[2018-02-09] MEDS: linagliptin 5mg tablet PO SCH (07:41)
[2018-02-09] MEDS: amox tr/potassium clavulanate 500mg/125mg TAB PO SCH ×2 (07:41→17:18)
[2018-02-09] MEDS: atorvastatin 20mg tablet PO SCH (07:42)
[2018-02-09] MEDS: lisinopril 20mg tablet PO SCH (07:42)
[2018-02-09] MEDS: HYDROchlorothiazide 25mg tablet PO SCH (07:42)
[2018-02-09] MEDS: enoxaparin 40mg/0.4ml syringe SQ SCH (07:43)
[2018-02-09 11:00] VITALS: BP 93/60
[2018-02-09] MEDS: insulin Lispro (HumaLOG) vial - multi-dose SQ SCH ×2 (14:01→19:07)
[2018-02-09 20:00] VITALS: BP 106/73
[2018-02-09] MEDS: insulin glargine (Lantus) pen - multi-dose SQ SCH (21:30)
[2018-02-10] VITALS: BP 109/74
[2018-02-10] MEDS: HYDROcodone/acetaminophen 10/325mg tab PO PRN ×5 (01:15→21:53)
[2018-02-10] MEDS: atorvastatin 20mg tablet PO SCH (07:28)
[2018-02-10] MEDS: linagliptin 5mg tablet PO SCH (07:29)
[2018-02-10] MEDS: HYDROchlorothiazide 25mg tablet PO SCH (07:29)
[2018-02-10] MEDS: lisinopril 20mg tablet PO SCH (07:29)
[2018-02-10] MEDS: amox tr/potassium clavulanate 500mg/125mg TAB PO SCH ×2 (07:30→17:39)
[2018-02-10] MEDS: enoxaparin 40mg/0.4ml syringe SQ SCH (07:30)
[2018-02-10 08:00] VITALS: BP 125/79
[2018-02-10] MEDS: insulin Lispro (HumaLOG) vial - multi-dose SQ SCH ×3 (10:04→19:21)
[2018-02-10 11:00] VITALS: BP 100/66
[2018-02-10] MEDS: lactobacillus rhamnosus 10,000 MMU CELLS/CAPSULE PO SCH (19:21)
[2018-02-10 20:00] VITALS: BP 110/73
[2018-02-10] MEDS: insulin glargine (Lantus) pen - multi-dose SQ SCH (21:08)
[2018-02-11] VITALS: BP 104/73
[2018-02-11] MEDS: HYDROcodone/acetaminophen 10/325mg tab PO PRN ×5 (03:44→23:01)
[2018-02-11 07:00] VITALS: BP 115/59
[2018-02-11] MEDS: atorvastatin 20mg tablet PO SCH (07:33)
[2018-02-11] MEDS: linagliptin 5mg tablet PO SCH (07:33)
[2018-02-11] MEDS: enoxaparin 40mg/0.4ml syringe SQ SCH (07:33)
[2018-02-11] MEDS: lactobacillus rhamnosus 10,000 MMU CELLS/CAPSULE PO SCH ×2 (07:33→21:20)
[2018-02-11] MEDS: lisinopril 20mg tablet PO SCH (07:33)
[2018-02-11] MEDS: amox tr/potassium clavulanate 500mg/125mg TAB PO SCH ×2 (07:33→16:49)
[2018-02-11] MEDS: HYDROchlorothiazide 25mg tablet PO SCH (07:34)
[2018-02-11] MEDS: insulin Lispro (HumaLOG) vial - multi-dose SQ SCH ×3 (09:33→19:09)
[2018-02-11 12:16] VITALS: BP 111/74
[2018-02-11 20:00] VITALS: BP 96/67
[2018-02-11] MEDS: insulin glargine (Lantus) pen - multi-dose SQ SCH (21:23)
[2018-02-11 23:00] VITALS: BP 116/80
[2018-02-12] MEDS: HYDROcodone/acetaminophen 10/325mg tab PO PRN ×3 (03:03→15:27)
[2018-02-12 07:00] VITALS: BP 113/83
[2018-02-12] MEDS: lactobacillus rhamnosus 10,000 MMU CELLS/CAPSULE PO SCH (07:55)
[2018-02-12] MEDS: atorvastatin 20mg tablet PO SCH (07:56)
[2018-02-12] MEDS: enoxaparin 40mg/0.4ml syringe SQ SCH (07:56)
[2018-02-12] MEDS: lisinopril 20mg tablet PO SCH (07:56)
[2018-02-12] MEDS: linagliptin 5mg tablet PO SCH (07:56)
[2018-02-12] MEDS: amox tr/potassium clavulanate 500mg/125mg TAB PO SCH (07:56)
[2018-02-12] MEDS: HYDROchlorothiazide 25mg tablet PO SCH (07:56)
[2018-02-12] MEDS ORDERED: morphine 5 MG/ML injection IV PRN (10:27)
[2018-02-12] MEDS ORDERED: morphine 4 MG/ML inj SYRINge IV PRN ×2 (10:30)
[2018-02-12 12:05] VITALS: BP 116/80
[2018-02-12] MEDS: insulin Lispro (HumaLOG) vial - multi-dose SQ SCH (13:30)
== END 2018-02-12 17:58 | disposition home health service (06) | DRG 229 ==
LOC: PRE-OP 12:12 → SUR 3N 15:04
PROVIDERS: ADMIT Surgery; ATTEND Surgery
PROC: 0W9F0ZZ Drainage of Abdominal Wall, Open Approach (ICD-10-PCS; principal; 2018-02-08 14:20)
DX: K91.89 Other postprocedural complications and disorders of digestive system (principal); L02.211 Cutaneous abscess of abdominal wall; I10 Essential (primary) hypertension; Y83.8 Other surgical procedures as the cause of abnormal reaction of the patient, or of later complication, without mention of misadventure at the time of the procedure; E11.9 Type 2 diabetes mellitus without complications; E78.5 Hyperlipidemia, unspecified; Z87.891 Personal history of nicotine dependence; Z80.0 Family history of malignant neoplasm of digestive organs; Y92.89 Other specified places as the place of occurrence of the external cause; Z79.4 Long term (current) use of insulin; Z79.84 Long term (current) use of oral hypoglycemic drugs
CPT/HCPCS: 36415; 80053; 82948; 85025; A4649; A6209; A6255; A6449; A7000; J0690; J1650; J1815; J2001; J2250; J2270; J2405; J2704; J2710; J3010; J3490; J7120

== ENCOUNTER 2018-02-15 09:34 | Day surgery (SDC) | payer BC ==
[~2018-02-15 09:34] MED LIST changes: -cefazolin/dext.iso 2gm/50ml 50 ML IV ONE; -famotidine 20mg tablet PO ONE
[2018-02-15] MEDS ORDERED: LIDOcaine 2% 5ml jelly ONE ×2 (10:03→10:52)
[2018-02-15] MEDS ORDERED: OXYC-150 PO (10:40)
[2018-02-15] MEDS ORDERED: AMOX-580 PO (10:41)
== END 2018-02-15 11:25 | disposition home or self-care (01) ==
LOC: WOUND CARE 09:34
PROVIDERS: ATTEND Surgery
DX: T81.89XA Other complications of procedures, not elsewhere classified, initial encounter (principal); L98.491 Non-pressure chronic ulcer of skin of other sites limited to breakdown of skin; S81.002A Unspecified open wound, left knee, initial encounter; I10 Essential (primary) hypertension; E78.5 Hyperlipidemia, unspecified; E66.9 Obesity, unspecified; F10.21 Alcohol dependence, in remission; Z79.84 Long term (current) use of oral hypoglycemic drugs; Z79.4 Long term (current) use of insulin; Z87.891 Personal history of nicotine dependence; Z90.49 Acquired absence of other specified parts of digestive tract; Z68.30 Body mass index [BMI] 30.0-30.9, adult; Z79.2 Long term (current) use of antibiotics; Z79.82 Long term (current) use of aspirin; Z79.899 Other long term (current) drug therapy; X58.XXXA Exposure to other specified factors, initial encounter; Y93.89 Activity, other specified; Y92.89 Other specified places as the place of occurrence of the external cause; Y99.8 Other external cause status; Y83.8 Other surgical procedures as the cause of abnormal reaction of the patient, or of later complication, without mention of misadventure at the time of the procedure
CPT/HCPCS: 36416; 82948; 97597; A4456

== ENCOUNTER 2018-02-23 08:25 | Day surgery (SDC) | payer BC ==
[~2018-02-23 08:25] MED LIST changes: +AMOX-580 PO; +OXYC-150 PO
[2018-02-23] MEDS ORDERED: LIDOcaine 2% 5ml jelly ONE (09:22)
[2018-02-24] MEDS ORDERED: AMOX-422 PO (12:48)
[2018-02-24] MEDS ORDERED: HYDR-565 PO (12:48)
== END 2018-02-23 10:44 | disposition home or self-care (01) ==
LOC: WOUND CARE 08:25
PROVIDERS: ATTEND Surgery
DX: T81.89XD Other complications of procedures, not elsewhere classified, subsequent encounter (principal); L98.491 Non-pressure chronic ulcer of skin of other sites limited to breakdown of skin; S81.002D Unspecified open wound, left knee, subsequent encounter; I10 Essential (primary) hypertension; E78.5 Hyperlipidemia, unspecified; E66.9 Obesity, unspecified; F10.21 Alcohol dependence, in remission; Z79.84 Long term (current) use of oral hypoglycemic drugs; Z79.4 Long term (current) use of insulin; Z87.891 Personal history of nicotine dependence; Z90.49 Acquired absence of other specified parts of digestive tract; Z68.30 Body mass index [BMI] 30.0-30.9, adult; Z79.2 Long term (current) use of antibiotics; Z79.82 Long term (current) use of aspirin; Z79.899 Other long term (current) drug therapy; X58.XXXD Exposure to other specified factors, subsequent encounter; Y83.8 Other surgical procedures as the cause of abnormal reaction of the patient, or of later complication, without mention of misadventure at the time of the procedure
CPT/HCPCS: 82948; 97597; A6196

== ENCOUNTER 2018-02-24 08:29 | Emergency (ER) | payer BC ==
[~2018-02-24] VITALS: Ht 182.9 cm; Wt 90.0 kg
[2018-02-24 10:17] LABS: BASOPHILS % (AUTO) 0.3 % (0-1); EOSINOPHILS # (AUTO) 0.3 X10'3 (0-0.9); EOSINOPHILS % (AUTO) 2.3 % (0-6); HEMATOCRIT 36.8 % (42.0-52.0); HEMOGLOBIN 12.6 g/dl (14.0-17.9); LYMPHOCYTES # (AUTO) 1.4 X10'3 (1.1-4.8); LYMPHOCYTES % (AUTO) 12.5 % (21-51); MEAN CORPUSCULAR HEMOGLOBIN 27.5 PG (27.0-31.0); MEAN CORPUSCULAR HGB CONC 34.3 % (33.0-36.5); MEAN CORPUSCULAR VOLUME 80.4 FL (78-98); MEAN PLATELET VOLUME 7.7 FL (7.4-10.4); MONOCYTES # (AUTO) 0.6 X10'3 (0-0.9); MONOCYTES % (AUTO) 5.8 % (2-12); NEUTROPHILS # (AUTO) 8.8 X10'3 (1.8-7.7); NEUTROPHILS % (AUTO) 79.1 % (42-75); PLATELET COUNT 312 X10'3 (140-440); RED BLOOD COUNT 4.58 X10'6 (4.70-6.10); RED CELL DISTRIBUTION WIDTH 14.5 % (11.5-14.5); WHITE BLOOD COUNT 11.2 X10'3 (4.5-11.0)
[2018-02-24] MEDS ORDERED: normal saline 1000ml 1,000 ML IV ONE (10:25)
[2018-02-24] MEDS ORDERED: HYDROmorphone 1 mg/ml syringe IV ONE ×2 (10:25→12:40)
[2018-02-24] MEDS ORDERED: HYDROmorphone inj. 0.5 MG/0.5 ML DISP.SYRIN ONE ×2 (10:27→12:55)
[2018-02-24 10:29] LABS: PARTIAL THROMBOPLASTIN TIME 26 SECONDS (22-32); PROTHROMBIN TIME 10.7 SECONDS (9.0-12.0)
[2018-02-24 10:33] LABS: ALANINE AMINOTRANSFERASE 20 U/L (12-78); ALBUMIN 3.4 G/DL (3.4-5.0); ALBUMIN/GLOBULIN RATIO 0.9 (1.1-1.5); ANION GAP 10 (8-16); ASPARTATE AMINO TRANSFERASE 11 U/L (10-37); BILIRUBIN,TOTAL 0.7 MG/DL (0.1-1.0); BLOOD UREA NITROGEN 17 MG/DL (7-18); BUN/CREATININE RATIO 19.1 (5.4-32.0); CALCIUM 9.7 MG/DL (8.5-10.1); CHLORIDE 99 MMOL/L (99-107); CREATININE 0.89 MG/DL (0.60-1.10); GLUCOSE 215 MG/DL (70-104); MAGNESIUM 1.9 MG/DL (1.5-2.4); POTASSIUM 4.2 MMOL/L (3.5-5.1); SODIUM 137 MMOL/L (135-145); TOTAL CARBON DIOXIDE 27.6 MMOL/L (24-32); TOTAL PROTEIN 7.4 G/DL (6.4-8.2); eGFR > 90 ML/MIN
[2018-02-24 10:34] LABS: ALKALINE PHOSPHATASE 60 IU/L (46-116)
[2018-02-24 10:47] LABS: CLARITY,URINE CLEAR (Clear); COLOR,URINE YELLOW (Yellow); GLUCOSE, URINE NEGATIVE (Neg); KETONES,URINE NEGATIVE (Neg); LEUKOCYTE ESTERASE ,URINE NEGATIVE (Neg); NITRITES, URINE NEGATIVE (Neg); OCCULT BLOOD,URINE NEGATIVE (Neg); PROTEIN,URINE NEGATIVE (Neg); UROBILINOGEN,URINE 0.2 E.U/dL (0.2-1.0)
[2018-02-24 10:54] LABS: UA COLLECTION TYPE CLN CATCH MIDSTREAM
[2018-02-24] MEDS ORDERED: iohexol 300mg/ml 100ml inj. ONE (11:17)
[2018-02-24] MEDS ORDERED: amox tr/potassium clavulanate 875/125mg TAB PO ONE (12:40)
[2018-02-24] MEDS ORDERED: AMOX-422 PO (12:48)
[2018-02-24] MEDS ORDERED: HYDR-565 PO (12:48)
[2018-02-24 13:05] VITALS: BP 115/80
== END 2018-02-24 13:07 | disposition home or self-care (01) ==
LOC: ER 08:29
DX: G89.18 Other acute postprocedural pain (principal); E78.00 Pure hypercholesterolemia, unspecified; I10 Essential (primary) hypertension; E11.9 Type 2 diabetes mellitus without complications; Z79.4 Long term (current) use of insulin; Z79.899 Other long term (current) drug therapy
CPT/HCPCS: 36415; 71045; 74177; 80053; 81003; 83605; 83735; 84145; 85025; 85610; 85730; 87040; 93005; 96361; 96374; 96376; 99285; J1170; J7030; Q9967

== ENCOUNTER 2018-02-27 10:56 | Day surgery (SDC) | payer BC ==
[~2018-02-27] VITALS: Ht 182.9 cm; Wt 101.2 kg
[~2018-02-27 10:56] MED LIST changes: +AMOX-422 PO; +diatr meglu/diatrizoate 30ml oral sol.-(3 dose) bottle PO ONE
[2018-02-27 11:15] VITALS: BP 121/82
[2018-02-27] MEDS ORDERED: normal saline 1000ml 1,000 ML IV SCH (12:20)
[2018-02-27] MEDS ORDERED: fentaNYL/PF 50MCG/1 ML 2ML syringe IV PRN (12:45)
[2018-02-27] MEDS ORDERED: midazolam 2 mg/2 ml injection IV PRN (12:45)
[2018-02-27] MEDS ORDERED: midazolam 2 mg/2 ml injection ONE (12:56)
[2018-02-27] MEDS ORDERED: iohexol 300mg/ml 100ml inj. ONE (12:57)
[2018-02-27] MEDS ORDERED: fentaNYL/PF 50MCG/1 ML 2ML syringe ONE (12:57)
== END 2018-02-27 13:39 | disposition home or self-care (01) ==
LOC: SSTAY O 10:56
PROVIDERS: ATTEND Radiology Diagnostic Radiology
DX: K57.20 Diverticulitis of large intestine with perforation and abscess without bleeding (principal); E11.9 Type 2 diabetes mellitus without complications; E78.5 Hyperlipidemia, unspecified; I10 Essential (primary) hypertension; Z53.8 Procedure and treatment not carried out for other reasons; Z79.4 Long term (current) use of insulin; Z72.89 Other problems related to lifestyle; Z98.52 Vasectomy status; Z87.891 Personal history of nicotine dependence; Z79.2 Long term (current) use of antibiotics; Z79.82 Long term (current) use of aspirin; Z79.891 Long term (current) use of opiate analgesic; Z98.890 Other specified postprocedural states; Z79.899 Other long term (current) drug therapy
CPT/HCPCS: 82948; A6258; J2250; J3010; J7030; C1769; Q9963; Q9967

== ENCOUNTER 2018-03-02 08:40 | Outpatient (CLI) | payer BC ==
[~2018-03-02 08:40] MED LIST changes: -AMOX-422 PO; -diatr meglu/diatrizoate 30ml oral sol.-(3 dose) bottle PO ONE
== END 2018-03-02 10:56 | disposition home or self-care (01) ==
LOC: WOUND CARE 08:40
PROVIDERS: ATTEND Surgery
DX: T81.89XD Other complications of procedures, not elsewhere classified, subsequent encounter (principal); L98.491 Non-pressure chronic ulcer of skin of other sites limited to breakdown of skin; I10 Essential (primary) hypertension; E78.5 Hyperlipidemia, unspecified; E66.9 Obesity, unspecified; F10.21 Alcohol dependence, in remission; Z79.84 Long term (current) use of oral hypoglycemic drugs; Z79.4 Long term (current) use of insulin; Z87.891 Personal history of nicotine dependence; Z90.49 Acquired absence of other specified parts of digestive tract; Z68.30 Body mass index [BMI] 30.0-30.9, adult; Z79.2 Long term (current) use of antibiotics; Z79.82 Long term (current) use of aspirin; Z79.899 Other long term (current) drug therapy; Y83.8 Other surgical procedures as the cause of abnormal reaction of the patient, or of later complication, without mention of misadventure at the time of the procedure
CPT/HCPCS: 36416; 82948; 97605; A6212; A4456

== ENCOUNTER 2018-03-09 08:30 | Outpatient (CLI) | payer BC ==
[2018-03-09] MEDS ORDERED: LIDOcaine 2% 5ml jelly ONE (09:36)
== END 2018-03-09 10:49 | disposition home or self-care (01) ==
LOC: WOUND CARE 08:30 → EDSTATUS 08:30 → WOUND CARE 10:49
PROVIDERS: ATTEND Surgery
DX: T81.89XD Other complications of procedures, not elsewhere classified, subsequent encounter (principal); L98.492 Non-pressure chronic ulcer of skin of other sites with fat layer exposed; I10 Essential (primary) hypertension; E78.5 Hyperlipidemia, unspecified; E66.9 Obesity, unspecified; F10.21 Alcohol dependence, in remission; Z79.84 Long term (current) use of oral hypoglycemic drugs; Z79.4 Long term (current) use of insulin; Z87.891 Personal history of nicotine dependence; Z90.49 Acquired absence of other specified parts of digestive tract; Z68.30 Body mass index [BMI] 30.0-30.9, adult; Z79.2 Long term (current) use of antibiotics; Z79.82 Long term (current) use of aspirin; Z79.899 Other long term (current) drug therapy; Y83.8 Other surgical procedures as the cause of abnormal reaction of the patient, or of later complication, without mention of misadventure at the time of the procedure
CPT/HCPCS: 36416; 82948; 97605

== ENCOUNTER 2018-03-16 08:28 | Outpatient (CLI) | payer BC ==
[~2018-03-16 08:28] MED LIST changes: -AMOX-580 PO
== END 2018-03-16 10:11 | disposition home or self-care (01) ==
LOC: WOUND CARE 08:28 → EDSTATUS 08:30 → WOUND CARE 10:11
PROVIDERS: ATTEND Surgery
DX: T81.89XD Other complications of procedures, not elsewhere classified, subsequent encounter (principal); L98.492 Non-pressure chronic ulcer of skin of other sites with fat layer exposed; I10 Essential (primary) hypertension; E78.5 Hyperlipidemia, unspecified; E66.9 Obesity, unspecified; E78.00 Pure hypercholesterolemia, unspecified; F10.21 Alcohol dependence, in remission; Z79.84 Long term (current) use of oral hypoglycemic drugs; Z79.4 Long term (current) use of insulin; Z87.891 Personal history of nicotine dependence; Z90.49 Acquired absence of other specified parts of digestive tract; Z68.30 Body mass index [BMI] 30.0-30.9, adult; Z79.2 Long term (current) use of antibiotics; Z79.82 Long term (current) use of aspirin; Z79.899 Other long term (current) drug therapy; Y83.8 Other surgical procedures as the cause of abnormal reaction of the patient, or of later complication, without mention of misadventure at the time of the procedure
CPT/HCPCS: 36416; 82948; 99215; A6212; A6266

== ENCOUNTER 2018-03-23 08:00 | Day surgery (SDC) | payer BC ==
[2018-03-23] MEDS ORDERED: LIDOcaine 2% 5ml jelly ONE (09:23)
== END 2018-03-23 10:00 | disposition home or self-care (01) ==
LOC: WOUND CARE 08:00
PROVIDERS: ATTEND Surgery
DX: T81.89XD Other complications of procedures, not elsewhere classified, subsequent encounter (principal); L98.492 Non-pressure chronic ulcer of skin of other sites with fat layer exposed; I10 Essential (primary) hypertension; E78.5 Hyperlipidemia, unspecified; E66.9 Obesity, unspecified; F10.21 Alcohol dependence, in remission; Z79.84 Long term (current) use of oral hypoglycemic drugs; Z79.4 Long term (current) use of insulin; Z87.891 Personal history of nicotine dependence; Z90.49 Acquired absence of other specified parts of digestive tract; Z68.30 Body mass index [BMI] 30.0-30.9, adult; Z79.2 Long term (current) use of antibiotics; Z79.82 Long term (current) use of aspirin; Z79.899 Other long term (current) drug therapy; Y83.8 Other surgical procedures as the cause of abnormal reaction of the patient, or of later complication, without mention of misadventure at the time of the procedure
CPT/HCPCS: 36416; 82948; 97597; A6021; A6206; A6212

== ENCOUNTER 2018-04-16 08:05 | Outpatient (CLI) | payer BC | END 2018-04-16 09:45 | disposition home or self-care (01) | LOC: WOUND CARE 08:05 → EDSTATUS 08:30 → WOUND CARE 09:45 | PROVIDERS: ATTEND Surgery | DX: T81.89XD Other complications of procedures, not elsewhere classified, subsequent encounter (principal); L98.492 Non-pressure chronic ulcer of skin of other sites with fat layer exposed; I10 Essential (primary) hypertension; E78.5 Hyperlipidemia, unspecified; E66.9 Obesity, unspecified; F10.21 Alcohol dependence, in remission; Z79.84 Long term (current) use of oral hypoglycemic drugs; Z79.4 Long term (current) use of insulin; Z87.891 Personal history of nicotine dependence; Z90.49 Acquired absence of other specified parts of digestive tract; Z68.30 Body mass index [BMI] 30.0-30.9, adult; Z79.2 Long term (current) use of antibiotics; Z79.82 Long term (current) use of aspirin; Z79.899 Other long term (current) drug therapy; Y83.8 Other surgical procedures as the cause of abnormal reaction of the patient, or of later complication, without mention of misadventure at the time of the procedure | CPT/HCPCS: 36416; 82948; 99214 ==

== ENCOUNTER 2023-03-22 09:48 | Inpatient (IN) | payer BC, OTHER ==
[~2023-03-22] VITALS: Ht 181.6 cm; Wt 90.9 kg
[~2023-03-22 09:48] MED LIST changes: +HYDR-4353 PO; -HYDR-565 PO; -INSU100I25 SQ; +INSU100I27 SQ; -LISI1TAB13 PO; +LISI1TAB53 PO; +SIMV-42 PO; -SIMV20TA5 PO
[2023-03-22] MEDS ORDERED: piperacillin/tazo 3.375gm/50ml 50 ML IV ONE (10:00)
[2023-03-22] MEDS ORDERED: morphine 4 MG/ML inj SYRINge IV ONE (10:00)
[2023-03-22] MEDS ORDERED: ondansetron/PF 4mg/2ml inj IV ONE (10:00)
[2023-03-22] MEDS ORDERED: ketorolac trometh. 30mg/ml inj. IV ONE (10:00)
[2023-03-22 10:31] LABS: BASOPHILS # (AUTO) 0.1 X10'3 (0-0.2); BASOPHILS % (AUTO) 0.3 % (0-1); EOSINOPHILS % (AUTO) 0.1 % (0-6); HEMATOCRIT 49.5 % (42.0-52.0); HEMOGLOBIN 16.2 g/dl (14.0-17.9); LYMPHOCYTES # (AUTO) 1.2 X10'3 (1.1-4.8); LYMPHOCYTES % (AUTO) 3.7 % (21-51); MEAN CORPUSCULAR HEMOGLOBIN 27.6 PG (27.0-31.0); MEAN CORPUSCULAR HGB CONC 32.8 g/dL (33.0-36.5); MEAN CORPUSCULAR VOLUME 84.4 FL (78-98); MEAN PLATELET VOLUME 8.2 FL (7.4-10.4); MONOCYTES # (AUTO) 1.9 X10'3 (0-0.9); MONOCYTES % (AUTO) 5.7 % (2-12); NEUTROPHILS # (AUTO) 30.2 X10'3 (1.8-7.7); NEUTROPHILS % (AUTO) 90.2 % (42-75); PLATELET COUNT 426 X10'3 (140-440); RED BLOOD COUNT 5.86 X10'6 (4.70-6.10); RED CELL DISTRIBUTION WIDTH 13.5 % (11.5-14.5)
[2023-03-22 10:40] LABS: WHITE BLOOD COUNT 33.4 X10'3 (4.5-11.0)
[2023-03-22] MEDS ORDERED: vancomycin/NS 1 GM ADD-VANTAGE 250 ML IV ONE (10:40)
[2023-03-22] MEDS ORDERED: normal saline 1000ML IV soln IVB ONE ×2 (10:45→14:10)
[2023-03-22 10:51] LABS: ALANINE AMINOTRANSFERASE 16 U/L (12-78); ALBUMIN 2.4 G/DL (3.4-5.0); ALBUMIN/GLOBULIN RATIO 0.5 (1.1-1.5); ALKALINE PHOSPHATASE 172 IU/L (46-116); ANION GAP 19 (8-16); ASPARTATE AMINO TRANSFERASE 17 U/L (10-37); BILIRUBIN,TOTAL 0.8 MG/DL (0.1-1.0); BLOOD UREA NITROGEN 13 MG/DL (7-18); BUN/CREATININE RATIO 15.5 (10.0-20.0); CALCIUM 9.1 MG/DL (8.5-10.1); CHLORIDE 95 MMOL/L (99-107); CREATININE 0.84 MG/DL (0.60-1.10); GLUCOSE 231 MG/DL (70-104); MAGNESIUM 1.8 MG/DL (1.5-2.4); POTASSIUM 3.5 MMOL/L (3.5-5.1); SODIUM 134 MMOL/L (135-145); TOTAL CARBON DIOXIDE 20.4 MMOL/L (24-32); TOTAL PROTEIN 6.8 G/DL (6.4-8.2); eGFR > 90 ML/MIN
[2023-03-22 11:24] LABS: CREATINE KINASE 75 U/L (39-308)
[2023-03-22 11:37] LABS: C-REACTIVE PROTEIN 29.53 MG/DL (0.0-0.5)
[2023-03-22 11:38] LABS: TOTAL CELLS COUNTED 100
[2023-03-22 11:39] LABS: PLATELET ESTIMATE NORMAL
[2023-03-22] MEDS ORDERED: iohexol 300mg/ml 100ml inj. ONE (11:54)
--- NOTE | 2023-03-22 12:51 | NUR ---
Pt keeps complaining he is hungry and wants to eat. Waiting for the CT scan results. Pt threatening to leave AMA. Demanding a phone to call.
[2023-03-22] MEDS ORDERED: CLINDAMYCIN 600mg IN NS 50ML 50 ML IV ONE (14:10)
[2023-03-22 14:54] LABS: CLARITY,URINE CLEAR (Clear); COLOR,URINE YELLOW (Yellow); GLUCOSE, URINE 500 mg/dl (Neg); KETONES,URINE >=80 mg/dl (Neg); LEUKOCYTE ESTERASE ,URINE NEGATIVE (Neg); NITRITES, URINE NEGATIVE (Neg); OCCULT BLOOD,URINE NEGATIVE (Neg); PROTEIN,URINE NEGATIVE (Neg); UROBILINOGEN,URINE 0.2 E.U/dL (0.2-1.0)
[2023-03-22 15:01] LABS: UA COLLECTION TYPE URINAL
[2023-03-22] MEDS ORDERED: magnesium Cl slow-release 64mg tablet PO PRN (15:20)
[2023-03-22] MEDS ORDERED: ondansetron/PF 4mg/2ml inj IV PRN (15:20)
[2023-03-22] MEDS ORDERED: HYDROmorphone/PF 0.2 MG/ML SYRINGE IV PRN (15:20)
[2023-03-22] MEDS ORDERED: magnesium hydroxide 30ml (MOM) UD suspension PO PRN (15:20)
[2023-03-22] MEDS ORDERED: magnesium 2GM in 50ml NS 50 ML IV PRN (15:20)
[2023-03-22] MEDS ORDERED: potassium Cl 40MEQ/1/2NS 520ml 520 ML IV PRN (15:20)
[2023-03-22] MEDS ORDERED: magnesium 4gm in 100ml NS 100 ML IV PRN (15:20)
[2023-03-22] MEDS ORDERED: mag hydrox/Alum hydrox/simeth 30ml oral suspension PO PRN (15:20)
[2023-03-22] MEDS ORDERED: acetaminophen 325mg tablet PO PRN (15:20)
[2023-03-22] MEDS ORDERED: potassium Cl 20 mEq SR tablet PO PRN ×2 (15:20)
[2023-03-22] MEDS: CLINDAMYCIN 600mg IN NS 50ML 50 ML IV SCH ×2 (15:29→23:48)
[2023-03-22] MEDS: normal saline 1000ml 1,000 ML IV SCH (15:42)
[2023-03-22] MEDS: piperacillin/tazo 4.5gm/100ml 100 ML IV SCH (16:32)
[2023-03-22 16:48] LABS: HEMOGLOBIN A1C > 12.0 % (4.5-6.2)
[2023-03-22] MEDS: HYDROmorphone inj. 0.5 MG/0.5 ML DISP.SYRIN IV PRN ×2 (18:05→22:59)
[2023-03-22] MEDS ORDERED: MESSAGE TO PHARMACY PO ONE (20:00)
[2023-03-22] MEDS: K and/or MAG REPLACEMENT MC SCH (20:00)
[2023-03-22] MEDS ORDERED: glucagon, human recombinant 1mg kit SUBCUT PRN ×2 (20:00→20:10)
[2023-03-22] MEDS ORDERED: DEXTROSE 15 GM of carb/4 tabs (each vial/BOTTLE has 4 tablets) PO PRN ×3 (20:00→20:10)
[2023-03-22] MEDS ORDERED: dextrose 50%-water 50ml dispensing syringe IV PRN ×4 (20:10→20:15)
[2023-03-22 20:30] VITALS: BP 156/98
--- NOTE | 2023-03-22 20:30 | NUR ---
Patient in room ORTHO 4015. I have received report from Meño ZAVALETA and had the opportunity to ask questions and assume patient care.
[2023-03-22] MEDS: docusate sod 100mg capsule PO SCH (20:49)
[2023-03-22] MEDS: insulin glargine (Lantus) pen - multi-dose SQ SCH (20:57)
[2023-03-22 22:00] VITALS: BP 163/67
[2023-03-22] MEDS: VANCOmycin 1250MG/NS 250ml Bag 250 ML IV SCH (23:48)
[2023-03-23] MEDS: normal saline 1000ml 1,000 ML IV SCH ×3 (01:20→21:20)
[2023-03-23] MEDS: piperacillin/tazo 4.5gm/100ml 100 ML IV SCH ×2 (01:58→09:05)
[2023-03-23] MEDS: HYDROmorphone inj. 0.5 MG/0.5 ML DISP.SYRIN IV PRN ×2 (02:45→08:06)
--- NOTE | 2023-03-23 06:38 | NUR ---
Patient in room ORTHO 4015. I have received report from Eduarda ZAVALETA and had the opportunity to ask questions and assume patient care.
[2023-03-23 07:07] LABS: BASOPHILS # (AUTO) 0.1 X10'3 (0-0.2); BASOPHILS % (AUTO) 0.2 % (0-1); EOSINOPHILS % (AUTO) 0 % (0-6); HEMATOCRIT 48.1 % (42.0-52.0); HEMOGLOBIN 15.6 g/dl (14.0-17.9); LYMPHOCYTES # (AUTO) 1.6 X10'3 (1.1-4.8); LYMPHOCYTES % (AUTO) 4.4 % (21-51); MEAN CORPUSCULAR HEMOGLOBIN 27.5 PG (27.0-31.0); MEAN CORPUSCULAR HGB CONC 32.5 g/dL (33.0-36.5); MEAN CORPUSCULAR VOLUME 84.5 FL (78-98); MEAN PLATELET VOLUME 8.1 FL (7.4-10.4); MONOCYTES # (AUTO) 1.7 X10'3 (0-0.9); MONOCYTES % (AUTO) 4.8 % (2-12); NEUTROPHILS # (AUTO) 31.8 X10'3 (1.8-7.7); NEUTROPHILS % (AUTO) 90.6 % (42-75); PLATELET COUNT 418 X10'3 (140-440); RED BLOOD COUNT 5.69 X10'6 (4.70-6.10); RED CELL DISTRIBUTION WIDTH 13.5 % (11.5-14.5)
[2023-03-23 07:09] LABS: ALBUMIN 1.9 G/DL (3.4-5.0); ANION GAP 18 (8-16); BLOOD UREA NITROGEN 14 MG/DL (7-18); BUN/CREATININE RATIO 17.1 (10.0-20.0); CALCIUM 8.6 MG/DL (8.5-10.1); CHLORIDE 100 MMOL/L (99-107); CREATININE 0.82 MG/DL (0.60-1.10); GLUCOSE 214 MG/DL (70-104); MAGNESIUM 1.8 MG/DL (1.5-2.4); POTASSIUM 3.8 MMOL/L (3.5-5.1); SODIUM 133 MMOL/L (135-145); TOTAL CARBON DIOXIDE 15.4 MMOL/L (24-32); eGFR > 90 ML/MIN
[2023-03-23 07:13] LABS: WHITE BLOOD COUNT 35.1 X10'3 (4.5-11.0)
[2023-03-23 07:53] LABS: PLATELET ESTIMATE NORMAL; TOTAL CELLS COUNTED 100
[2023-03-23] MEDS: enoxaparin 40mg/0.4ml syringe SUBCUT SCH (08:00)
[2023-03-23] MEDS: docusate sod 100mg capsule PO SCH ×2 (08:00→20:00)
[2023-03-23] MEDS: K and/or MAG REPLACEMENT MC SCH ×2 (08:00→20:00)
[2023-03-23] MEDS: CLINDAMYCIN 600mg IN NS 50ML 50 ML IV SCH ×3 (08:08→23:12)
[2023-03-23] MEDS: insulin Lispro (HumaLOG) vial - multi-dose SQ SCH ×3 (09:13→19:09)
[2023-03-23 10:00] VITALS: BP 146/87
--- NOTE | 2023-03-23 11:20 | NUR ---
DM Consult: Pt admit DX L leg cellulitis hx T2DM insulin dependent A1C >12.0% w/ home Rx Levemir 64units HS and daily Tradjenta at home per EMR. Pt refused RD DM diet ed during visit today. Addendum: 03/23/23 at [address] Amended: Links added.
[2023-03-23] MEDS: VANCOmycin 1250MG/NS 250ml Bag 250 ML IV SCH (12:52)
[2023-03-23] MEDS: HYDROmorphone 1 mg/ml syringe IV PRN ×2 (13:20→17:54)
--- NOTE | 2023-03-23 13:25 | NUR ---
patient appears agitated and verbally very aggressive towards staff, demanding ice and cursing. Explained that patient cannot have unlimited ice because of pending procedure. patient not compliant asking many different staff to keep getting him ice. Family present in room. Dr bashir aware. medicated for pain q4hrly, increase in dosage of Dilaudid per Dr bashir for pain 08/22 . Angio in to do drainage of left thigh/knee area. will continue to monitor
--- NOTE | 2023-03-23 14:52 | NUR ---
Abscess drain complete to left thigh, 17ml removed, sample taken to lab.
[2023-03-23 19:00] VITALS: BP 146/87
[2023-03-23] MEDS: insulin glargine (Lantus) pen - multi-dose SQ SCH (20:49)
[2023-03-23] MEDS: atorvastatin 10mg tablet PO SCH (20:50)
[2023-03-23] MEDS: HYDROcodone/acetaminophen 10/325mg tab PO PRN (20:50)
[2023-03-23] MEDS ORDERED: INSULIN DETEMIR 64 UNIT SQ SCH (21:00)
[2023-03-23 22:00] VITALS: BP 147/87
[2023-03-24] MEDS: VANCOmycin 1250MG/NS 250ml Bag 250 ML IV SCH ×2 (00:06→12:13)
--- NOTE | 2023-03-24 00:26 | NUR ---
patient woke up extremely angry yelling and cursing with regards his IV beeping, Staff spoke with patient was able to reposition IV in left FA. Patient now resting
[2023-03-24] MEDS: HYDROcodone/acetaminophen 10/325mg tab PO PRN ×4 (01:29→17:19)
--- NOTE | 2023-03-24 06:21 | NUR ---
Problems reprioritized. Patient report given, questions answered & plan of care reviewed with Glory ZAVALETA.
--- NOTE | 2023-03-24 06:39 | NUR ---
Patient in room ORTHO 4015. I have received report from Soniya ZAVALETA and had the opportunity to ask questions and assume patient care.
[2023-03-24] MEDS: normal saline 1000ml 1,000 ML IV SCH ×2 (07:20→16:00)
[2023-03-24] MEDS: HYDROchlorothiazide 25mg tablet PO SCH (07:29)
[2023-03-24] MEDS: lisinopril 20mg tablet PO SCH (07:29)
[2023-03-24 07:30] VITALS: BP 152/84
[2023-03-24] MEDS: enoxaparin 40mg/0.4ml syringe SUBCUT SCH (07:30)
[2023-03-24] MEDS: linagliptin 5mg tablet PO SCH (08:00)
[2023-03-24] MEDS ORDERED: CefTRIAXone 2gm/D5W 50ml BAG 50 ML IV SCH (08:00)
[2023-03-24] MEDS: K and/or MAG REPLACEMENT MC SCH ×2 (08:00→20:00)
[2023-03-24] MEDS: CLINDAMYCIN 600mg IN NS 50ML 50 ML IV SCH (08:08)
[2023-03-24] MEDS: docusate sod 100mg capsule PO SCH ×2 (08:09→20:00)
[2023-03-24] MEDS: insulin Lispro (HumaLOG) vial - multi-dose SQ SCH ×3 (08:21→19:00)
[2023-03-24 08:31] LABS: ALBUMIN 1.9 G/DL (3.4-5.0); ANION GAP 6 (8-16); BLOOD UREA NITROGEN 12 MG/DL (7-18); CALCIUM 8.2 MG/DL (8.5-10.1); CHLORIDE 98 MMOL/L (99-107); CREATININE 0.63 MG/DL (0.60-1.10); GLUCOSE 218 MG/DL (70-104); MAGNESIUM 1.8 MG/DL (1.5-2.4); POTASSIUM 3.6 MMOL/L (3.5-5.1); SODIUM 131 MMOL/L (135-145); TOTAL CARBON DIOXIDE 26.6 MMOL/L (24-32); eGFR > 90 ML/MIN
[2023-03-24 08:42] LABS: LYMPHOCYTES # (AUTO) 1.2 X10'3 (1.1-4.8)
[2023-03-24 08:47] LABS: BASOPHILS % (AUTO) 0.2 % (0-1); EOSINOPHILS # (AUTO) 0.1 X10'3 (0-0.9); EOSINOPHILS % (AUTO) 0.3 % (0-6); HEMATOCRIT 42.8 % (42.0-52.0); HEMOGLOBIN 14.2 g/dl (14.0-17.9); LYMPHOCYTES % (AUTO) 6.2 % (21-51); MEAN CORPUSCULAR HEMOGLOBIN 27.8 PG (27.0-31.0); MEAN CORPUSCULAR HGB CONC 33.2 g/dL (33.0-36.5); MEAN CORPUSCULAR VOLUME 83.9 FL (78-98); MEAN PLATELET VOLUME 7.9 FL (7.4-10.4); MONOCYTES # (AUTO) 1.1 X10'3 (0-0.9); MONOCYTES % (AUTO) 5.8 % (2-12); NEUTROPHILS # (AUTO) 17.2 X10'3 (1.8-7.7); NEUTROPHILS % (AUTO) 87.5 % (42-75); PLATELET COUNT 392 X10'3 (140-440); RED CELL DISTRIBUTION WIDTH 13.3 % (11.5-14.5); WHITE BLOOD COUNT 19.7 X10'3 (4.5-11.0)
[2023-03-24] MEDS: HYDROmorphone inj. 0.5 MG/0.5 ML DISP.SYRIN IV PRN (10:57)
[2023-03-24] MEDS ORDERED: VANCOMYCIN LEVEL IV ONE (11:30)
[2023-03-24] MEDS: HYDROmorphone 1 mg/ml syringe IV PRN ×3 (14:57→22:53)
--- NOTE | 2023-03-24 18:16 | NUR ---
Problems reprioritized. Patient report given, questions answered & plan of care reviewed with Osiris ZAVALETA.
[2023-03-24] MEDS: VANCOMYCIN 1,500MG in NS 300ml IVPB IV SCH (20:25)
[2023-03-24] MEDS: atorvastatin 10mg tablet PO SCH (20:51)
[2023-03-24] MEDS: insulin glargine (Lantus) pen - multi-dose SQ SCH (20:51)
--- NOTE | 2023-03-24 20:52 | NUR ---
Patient refused all medication except for IV ABT, Patient refused HS accu-check. He stated "get the hell out, leave me alone"
[2023-03-25] MEDS: HYDROcodone/acetaminophen 10/325mg tab PO PRN ×6 (01:25→23:03)
[2023-03-25] MEDS: normal saline 1000ml 1,000 ML IV SCH (03:20)
[2023-03-25] MEDS: VANCOMYCIN 1,500MG in NS 300ml IVPB IV SCH (03:35)
[2023-03-25] MEDS: HYDROmorphone 1 mg/ml syringe IV PRN ×3 (03:35→21:08)
--- NOTE | 2023-03-25 06:24 | NUR ---
Problems reprioritized. Patient report given, questions answered & plan of care reviewed with Aleah ZAVALETA.
--- NOTE | 2023-03-25 06:28 | NUR ---
Patient in room ORTHO 4015. I have received report from Osiris and had the opportunity to ask questions and assume patient care.
[2023-03-25 06:36] LABS: BASOPHILS # (AUTO) 0.1 X10'3 (0-0.2); BASOPHILS % (AUTO) 0.5 % (0-1); EOSINOPHILS % (AUTO) 0.3 % (0-6); HEMATOCRIT 42.5 % (42.0-52.0); HEMOGLOBIN 14.2 g/dl (14.0-17.9); LYMPHOCYTES # (AUTO) 1.4 X10'3 (1.1-4.8); LYMPHOCYTES % (AUTO) 10.4 % (21-51); MEAN CORPUSCULAR HEMOGLOBIN 27.8 PG (27.0-31.0); MEAN CORPUSCULAR HGB CONC 33.4 g/dL (33.0-36.5); MEAN CORPUSCULAR VOLUME 83.3 FL (78-98); MEAN PLATELET VOLUME 7.9 FL (7.4-10.4); MONOCYTES % (AUTO) 7.2 % (2-12); NEUTROPHILS # (AUTO) 10.8 X10'3 (1.8-7.7); NEUTROPHILS % (AUTO) 81.6 % (42-75); PLATELET COUNT 356 X10'3 (140-440); RED BLOOD COUNT 5.11 X10'6 (4.70-6.10); RED CELL DISTRIBUTION WIDTH 13.4 % (11.5-14.5); WHITE BLOOD COUNT 13.2 X10'3 (4.5-11.0)
[2023-03-25 06:42] LABS: ALBUMIN 1.9 G/DL (3.4-5.0); ANION GAP 5 (8-16); BLOOD UREA NITROGEN 10 MG/DL (7-18); BUN/CREATININE RATIO 18.2 (10.0-20.0); CALCIUM 8.1 MG/DL (8.5-10.1); CHLORIDE 102 MMOL/L (99-107); CREATININE 0.55 MG/DL (0.60-1.10); GLUCOSE 222 MG/DL (70-104); MAGNESIUM 1.9 MG/DL (1.5-2.4); POTASSIUM 3.6 MMOL/L (3.5-5.1); SODIUM 134 MMOL/L (135-145); TOTAL CARBON DIOXIDE 27.4 MMOL/L (24-32); eGFR > 90 ML/MIN
[2023-03-25] MEDS: K and/or MAG REPLACEMENT MC SCH ×2 (07:50→19:36)
[2023-03-25 08:00] VITALS: BP 124/75
[2023-03-25] MEDS: HYDROchlorothiazide 25mg tablet PO SCH (08:00)
[2023-03-25] MEDS: docusate sod 100mg capsule PO SCH ×2 (08:00→20:00)
[2023-03-25] MEDS: linagliptin 5mg tablet PO SCH (08:01)
[2023-03-25] MEDS: lisinopril 20mg tablet PO SCH (08:01)
[2023-03-25] MEDS: enoxaparin 40mg/0.4ml syringe SUBCUT SCH (08:03)
[2023-03-25] MEDS: ceFAZolin/D5W- 1GM premix 50 ML IV SCH ×3 (08:56→23:03)
--- NOTE | 2023-03-25 09:33 | NUR ---
Spoke with patient's . She stated she visited her and pulled out a loose tooth that was barely hanging on to the lower right gum.
[2023-03-25 10:14] VITALS: BP 136/87
[2023-03-25] MEDS: insulin Lispro (HumaLOG) vial - multi-dose SQ SCH ×3 (13:14→21:03)
--- NOTE | 2023-03-25 13:14 | NUR ---
Patient advised this business writer he has his own routine for insulin that his provider has prescribed to him. Patient was advised on the amount of humalog that the [facility] protocol would calculate to administer. Patient agreed to the amount for the correctional dose only.
--- NOTE | 2023-03-25 17:17 | NUR ---
Patient's BG remains high. Patient continues to eat snacks. Patient does not have any concerns about his BG.
[2023-03-25 18:00] VITALS: BP 136/85
--- NOTE | 2023-03-25 18:18 | NUR ---
Problems reprioritized. Patient report given, questions answered & plan of care reviewed with Cadence Roman
[2023-03-25] MEDS ORDERED: VANCOMYCIN LEVEL IV ONE (19:30)
[2023-03-25] MEDS: atorvastatin 10mg tablet PO SCH (20:10)
[2023-03-25] MEDS ORDERED: temazepam 15mg capsule PO PRN (20:30)
[2023-03-25] MEDS: insulin glargine (Lantus) pen - multi-dose SQ SCH (21:07)
[2023-03-25 22:00] VITALS: BP 140/85
[2023-03-26] MEDS: HYDROmorphone 1 mg/ml syringe IV PRN (01:36)
[2023-03-26] MEDS: HYDROcodone/acetaminophen 10/325mg tab PO PRN ×2 (04:39→08:32)
[2023-03-26 06:00] VITALS: BP 106/67
--- NOTE | 2023-03-26 06:00 | NUR ---
Patient in room ORTHO 4015. I have received report from Cadence Roman and had the opportunity to ask questions and assume patient care.
--- NOTE | 2023-03-26 06:22 | NUR ---
Problems reprioritized. Patient report given, questions answered & plan of care reviewed with WAQAR Bullard.
[2023-03-26] MEDS: ceFAZolin/D5W- 1GM premix 50 ML IV SCH (07:15)
[2023-03-26] MEDS: HYDROchlorothiazide 25mg tablet PO SCH (07:21)
[2023-03-26] MEDS: docusate sod 100mg capsule PO SCH (07:21)
[2023-03-26] MEDS: lisinopril 20mg tablet PO SCH (07:22)
[2023-03-26] MEDS: enoxaparin 40mg/0.4ml syringe SUBCUT SCH (07:22)
[2023-03-26] MEDS: linagliptin 5mg tablet PO SCH (07:22)
[2023-03-26] MEDS: K and/or MAG REPLACEMENT MC SCH (07:23)
[2023-03-26 09:22] LABS: ALBUMIN 1.9 G/DL (3.4-5.0); ANION GAP 5 (8-16); BLOOD UREA NITROGEN 8 MG/DL (7-18); CALCIUM 7.9 MG/DL (8.5-10.1); CHLORIDE 100 MMOL/L (99-107); CREATININE 0.73 MG/DL (0.60-1.10); GLUCOSE 307 MG/DL (70-104); MAGNESIUM 1.7 MG/DL (1.5-2.4); POTASSIUM 3.9 MMOL/L (3.5-5.1); SODIUM 133 MMOL/L (135-145); eGFR > 90 ML/MIN
[2023-03-26 09:36] LABS: BASOPHILS % (AUTO) 0.3 % (0-1); EOSINOPHILS # (AUTO) 0.1 X10'3 (0-0.9); EOSINOPHILS % (AUTO) 0.4 % (0-6); HEMATOCRIT 39.6 % (42.0-52.0); HEMOGLOBIN 13.2 g/dl (14.0-17.9); LYMPHOCYTES # (AUTO) 1.1 X10'3 (1.1-4.8); LYMPHOCYTES % (AUTO) 8.1 % (21-51); MEAN CORPUSCULAR HEMOGLOBIN 27.5 PG (27.0-31.0); MEAN CORPUSCULAR HGB CONC 33.3 g/dL (33.0-36.5); MEAN CORPUSCULAR VOLUME 82.8 FL (78-98); MEAN PLATELET VOLUME 7.9 FL (7.4-10.4); NEUTROPHILS # (AUTO) 11.8 X10'3 (1.8-7.7); NEUTROPHILS % (AUTO) 84.2 % (42-75); PLATELET COUNT 342 X10'3 (140-440); RED BLOOD COUNT 4.78 X10'6 (4.70-6.10); RED CELL DISTRIBUTION WIDTH 12.9 % (11.5-14.5)
[2023-03-26 10:00] VITALS: BP 136/87
[2023-03-26 10:15] LABS: TOTAL CELLS COUNTED 100
[2023-03-26 10:16] LABS: PLATELET ESTIMATE NORMAL; STOMATOCYTES FEW
[2023-03-26] MEDS ORDERED: LEVO-65 PO (11:01)
--- NOTE | 2023-03-26 11:49 | NUR ---
RE: Andie in [facility], pt's pharm is closed. He is requesting Rx for levaquin and [place] be sent to [facility] in [place]. Aleah
--- NOTE | 2023-03-26 12:15 | NUR ---
Reviewed discharge instructions with patient. Patient verbalized understanding. patient is alert, oriented and states he's ready to home for a BBQ. Patient dressed himself, gathered his belongings and was wheeled downstairs to be driven home by a friend.
--- NOTE | 2023-03-26 15:22 | NUR ---
Called received from patient's Nuris. They attempted to poultry picker meds from the [facility] in [place] but the script had not been received. Paged hospitalist with request to send meds to this pharmacy as patient's original pharmacy - [facility] - was closed today. Called in abx Rx to [facility] in [place]. Per pharmacy staff, patient/ did not ask for any pain medication while there.
--- NOTE | 2023-03-26 15:57 | NUR ---
Re: Andie, was in [address], pt expected pain medication (norco), says he hasn't had any filled in a long time. They called asking for pain meds to be sent to the [facility] in [place]. Please advise Aleah Addendum: 03/26/23 at 1558 by Aleah Dickerson RN Spoke with Nuris, pt's spouse and advised I would page the hospitalist. Nuris -
--- NOTE | 2023-03-26 16:31 | NUR ---
Spoke with hospitalist. There will not be an Rx for norco prescribed for patient. Per hospitalist, patient can use acetaminophen or follow up with his PCP. Will call patient to advise.
== END 2023-03-26 12:15 | disposition home or self-care (01) | DRG 872 ==
LOC: ER 09:49 → ED HOLD 15:20 → ORTHO 4S 19:00
PROVIDERS: ADMIT Family Medicine; ATTEND Family Medicine
PROC: B42G1ZZ Computerized Tomography (CT Scan) of Left Lower Extremity Arteries using Low Osmolar Contrast (ICD-10-PCS; 2023-03-22)
PROC: 0S9B3ZX Drainage of Left Hip Joint, Percutaneous Approach, Diagnostic (ICD-10-PCS; principal; 2023-03-23)
DX: A41.9 Sepsis, unspecified organism (principal); L02.416 Cutaneous abscess of left lower limb; L03.116 Cellulitis of left lower limb; F17.210 Nicotine dependence, cigarettes, uncomplicated; E78.00 Pure hypercholesterolemia, unspecified; I10 Essential (primary) hypertension; K21.9 Gastro-esophageal reflux disease without esophagitis; E11.9 Type 2 diabetes mellitus without complications; R59.1 Generalized enlarged lymph nodes; Z79.4 Long term (current) use of insulin; Z79.84 Long term (current) use of oral hypoglycemic drugs; Z90.49 Acquired absence of other specified parts of digestive tract
CPT/HCPCS: 10160; 36415; 73551; 73701; 76942; 80048; 80053; 80202; 81003; 82550; 82948; 83036; 83605; 83735; 84145; 85007; 85025; 86140; 87040; 87070; 87077; 87081; 87186; 93971; 99285; G0378; J0690; J0696; J1170; J1650; J1815; J1885; J2270; J2405; J2543; J3370; J3490; J7030; J7040; Q9967

== ENCOUNTER 2023-04-24 12:23 | Emergency (ER) | payer OTHER ==
[~2023-04-24] VITALS: Ht 182.9 cm; Wt 90.9 kg
[~2023-04-24 12:23] MED LIST changes: -OXYC-150 PO
[2023-04-24 12:25] VITALS: BP 126/72
== END 2023-04-24 14:25 | disposition left against medical advice (07) ==
LOC: ER 12:23
DX: M79.609 Pain in unspecified limb (principal); Z53.21 Procedure and treatment not carried out due to patient leaving prior to being seen by health care provider
CPT/HCPCS: 99281

== ENCOUNTER 2023-04-24 13:35 | Emergency (ER) | payer SELFPAY | END 2023-04-24 13:42 | disposition left against medical advice (07) | LOC: ER 13:35 | DX: F41.9 Anxiety disorder, unspecified (principal); Z53.21 Procedure and treatment not carried out due to patient leaving prior to being seen by health care provider ==